=== PATIENT | male | born 1960 | race African-American/Black ===

== ENCOUNTER 2017-02-18 15:02 | Inpatient (IN) | payer OTHER ==
[2017-02-18 16:17] VITALS: BMI 25.4
--- NOTE | 2017-02-18 17:13 | HP ---
CIWA Score - CIWA Score Nausea/Vomitin-Mild Nausea/No Vomiting Muscle Tremors: 4-Moderate,w/Arms Extend Anxiety: 3 Agitation: 3 Paroxysmal Sweats: 1-Minimal Palms Moist Orientation: 0-Oriented Tacttile Disturbances: 1-Very Mild Itch/Numbness Auditory Disturbances: 0-None Visual Disturbances: 0-None Headache: 1-Very Mild CIWA-Ar Total Score: 14 Admission ROS BHS - HPI Chief Complaint: withdrawal sx Allergies/Adverse Reactions: Allergies Allergy/AdvReac Type Severity Reaction Status Date / Time No Known Allergies Allergy Verified 04/16/11 18:33 History of Present Illness: 56 years old male with long history of alcohol nicotine dependence, has hypertension, hiv, bph, hyperlipidemia, and depression is admitted to detox Exam Limitations: No Limitations - Ebola screening Have you traveled outside of the country in the last 21 days: No Have you had contact with anyone from an Ebola affected area: No Have you been sick,other than usual withdrawal symptoms: No Do you have a fever: No - Review of Systems Constitutional: Loss of Appetite, Changes in sleep, Unintentional Wgt. Loss, Unexplained wgt Loss EENT: reports: Blurred Vision (eye glasses) Respiratory: reports: SOB with Exertion Cardiac: reports: No Symptoms Reported GI: reports: Nausea, Poor Fluid Intake, Indigestion, Abdominal cramping : reports: Frequency Musculoskeletal: reports: No Symptoms Reported Integumentary: reports: No Symptoms Reported Neuro: reports: Tremors Endocrine: reports: No Symptoms Reported Hematology: reports: No Symptoms Reported Psychiatric: reports: Judgement Intact, Anxious, Depressed Other Systems: Reviewed and Negative Patient History - Patient Medical History Hx Anemia: No Hx Asthma: Yes (Pt is on MDI) Hx Chronic Obstructive Pulmonary Disease (COPD): No Hx Cancer: No Hx Cardiac Disorders: No Hx Congestive Heart Failure: No Hx Hypertension: No Hx Hypercholesterolemia: No Hx Pacemaker: No HX Cerebrovascular Accident: No Hx Seizures: No Hx Dementia: No Hx Diabetes: No Hx Gastrointestinal Disorders: No Hx Liver Disease: No Hx Genitourinary Disorders: No Hx Sexually Transmitted Disorders: No Hx Renal Disease (ESRD): No Hx Thyroid Disease: No Hx Human Immunodeficiency Virus (HIV): Yes (2006) Hx Hepatitis C: No Hx Depression: Yes Hx Suicide Attempt: No Hx Bipolar Disorder: No Hx Schizophrenia: No - Patient Surgical History Past Surgical History: No Hx Neurologic Surgery: No Hx Cataract Extraction: No Hx Cardiac Surgery: No Hx Lung Surgery: No Hx Breast Surgery: No Hx Breast Biopsy: No Hx Abdominal Surgery: No Hx Appendectomy: No Hx Cholecystectomy: No Hx Genitourinary Surgery: No Hx Orthopedic Surgery: No - PPD History Previous Implant?: Yes Documented Results: Negative w/proof Implanted On Prior [facility] Admission?: Yes Date: 04/18/11 PPD to be Administered?: Yes - Smoking Cessation Smoking history: Current every day smoker Have you smoked in the past 12 months: Yes Aproximately how many cigarettes per day: 8 Cigars Per Day: 0 Hx Chewing Tobacco Use: No Initiated information on smoking cessation: Yes 'Breaking Loose' booklet given: 02/18/17 - Substance & Tx. History Hx Alcohol Use: Yes Hx Substance Use: Yes Substance Use Type: Cocaine Hx Substance Use Treatment: Yes (10/2016 violeta carson) - Substances Abused Alcohol Route: Oral Frequency: Daily Amount used: [id number] Age of first use: 16 Date of Last Use: 02/18/17 Family Disease History - Family Disease History Family Disease History: CA: Mother (), Sister (), Respiratory: Grandparent (), Other: Father (/no contact), Mother, Brother ( no contact), Sister Admission Physical Exam S - Vital Signs Vital Signs: Vital Signs - 24 hr 02/18/17 16:13 Temperature 97.7 F Pulse Rate 97 H Respiratory 19 Rate Blood Pressure 141/75 - Physical General Appearance: Yes: Appropriately Dressed, Mild Distress, Tremorous, Irritable, Sweating, Anxious HEENTM: Yes: Hearing grossly Normal, Normal ENT Inspection, Normocephalic, Normal Voice Respiratory: Yes: Chest Non-Tender, No Respiratory Distress, No Accessory Muscle Use, Rhonchi, Wheezing Neck: Yes: Supple, Trachea in good position Breast: Yes: Breasts Symetrical Cardiology: Yes: Regular Rhythm, S1, S2, Tachycardia Abdominal: Yes: Non Tender, Flat, Increased Bowel Sounds Genitourinary: Yes: Within Normal Limits Back: Yes: Normal Inspection Musculoskeletal: Yes: full range of Motion, Gait Steady, Back pain, Muscle Pain Extremities: Yes: Normal Range of Motion, Non-Tender, Tremors Neurological: Yes: Fully Oriented, Alert, Motor Strength 5/5, Normal Response, Depressed Affect Integumentary: Yes: Dry, Warm Lymphatic: Yes: Within Normal Limits - Diagnostic (1) Alcohol dependence with uncomplicated withdrawal Current Visit: Yes Status: Acute (2) Hypertension Current Visit: Yes Status: Chronic Qualifiers: Hypertension type: essential hypertension Qualified Code(s): I10 - Essential (primary) hypertension (3) Hyperlipidemia Current Visit: Yes Status: Chronic Qualifiers: Hyperlipidemia type: pure hypercholesterolemia Qualified Code(s): E78.00 - Pure hypercholesterolemia, unspecified; E78.0 - Pure hypercholesterolemia (4) Asthma Current Visit: Yes Status: Chronic Qualifiers: Asthma severity: moderate Asthma complication type: with status asthmaticus (5) BPH (benign prostatic hyperplasia) Current Visit: Yes Status: Chronic Qualifiers: Lower urinary tract symptom presence: symptoms present Lower urinary tract symptom detail: post-void dribbling Qualified Code(s): N40.1 - Benign prostatic hyperplasia with lower urinary tract symptoms; N39.43 - Post-void dribbling; N39.43 - Post-void dribbling (6) HIV (human immunodeficiency virus infection) Current Visit: Yes Status: Chronic Comment: patient brought in his own stribild (7) Chronic bronchitis Current Visit: Yes Status: Chronic Qualifiers: Chronic bronchitis type: simple Qualified Code(s): J41.0 - Simple chronic bronchitis (8) Depression (emotion) Current Visit: Yes Status: Suspected Qualifiers: Depression Type: dysthymia Qualified Code(s): F34.1 - Dysthymic disorder Cleared for Admission S - Detox or Rehab [facility] Level of Care: Medically Managed Detox Regimen/Protocol: Librium S Breath Alcohol Content Breath Alcohol Content: 0 Urine Drug Screen - Results Drug Screen Negative: No Urine Drug Screen Results: VANGIE-Cocaine, BZO-Benzodiazepines
[2017-02-18] MEDS ORDERED: LOPERAMIDE HCL 2 MG CAPSULE PO PRN (17:37)
[2017-02-18] MEDS ORDERED: MAGNESIUM HYDROX 2400MG/30ML ORAL SUSPENSION 30 ML CUP PO PRN (17:37)
[2017-02-18] MEDS ORDERED: P-EPHED 60MG/TRIPROLIDI 2.5MG TABLET PO PRN (17:37)
[2017-02-18] MEDS ORDERED: MENTHOL/PHENOL 1 EACH UD MM PRN (17:37)
[2017-02-18] MEDS ORDERED: MAGNESIUM CITRATE 300 ML BOTTLE PO PRN (17:37)
[2017-02-18] MEDS ORDERED: guaiFENesin/D-METHORPHAN HB 10 ML UNIT-DOSE CUPS PO PRN (17:37)
[2017-02-18] MEDS ORDERED: ACETAMINOPHEN 325 MG TABLET (FP) PO PRN (17:37)
[2017-02-18] MEDS ORDERED: NICOTINE POLACRILEX 2 MG GUM BC PRN (17:37)
[2017-02-18] MEDS ORDERED: IBUPROFEN 400 MG TABLET (FP) PO PRN (17:37)
[2017-02-18] MEDS ORDERED: NICOTINE 14 MG/24 HOURS TOPICAL PATCH TD PRN (17:37)
[2017-02-18] MEDS ORDERED: ALBUTEROL SO4 2.5/IPRATROPIUM 0.5 INH SOL 3 ML VIAL.NEB. NEB PRN (17:44)
[2017-02-18] MEDS ORDERED: cloNIDine HCL 0.1 MG TABLET PO PRN (17:47)
[2017-02-18] MEDS ORDERED: SIMETHICONE 80 MG TAB.CHEW (FP) PO PRN (17:50)
[2017-02-18] MEDS ORDERED: ALBUTEROL SO4 0.083% IH SOL 2.5 MG/3 ML VIAL.NEB. NEB PRN (17:59)
[2017-02-18] MEDS: ALBUTEROL SO4 18 GM HFA INHALER IH SCH ×2 (20:15→22:21)
[2017-02-18] MEDS: chlordiazePOXIDE HCL 25 MG CAPSULE PO PRN (20:15)
[2017-02-18] MEDS: MAG HYDROX/AL HYDROX/SIMETH 30 ML UNIT-DOSE CUP PO PRN (20:49)
[2017-02-18] MEDS: THIAMINE HCL 100 MG TABLET (FP) PO SCH (22:20)
[2017-02-18] MEDS: ATORVASTATIN CA 10 MG TABLET (FP) PO SCH (22:21)
[2017-02-18] MEDS: chlordiazePOXIDE HCL 25 MG CAPSULE PO SCH (22:21)
[2017-02-18] MEDS: TAMSULOSIN HCL 0.4 MG CAP.ER.24H (FP) PO SCH (22:21)
[2017-02-18] MEDS: MINERAL OIL/PETROLAT/WATER TOPICAL CREAM 113 GM JAR TP SCH (22:23)
[2017-02-18 23:39] LABS: URINE APPEARANCE SLCLOUDY; URINE BILIRUBIN NEGATIVE (NEGATIVE); URINE BLOOD NEGATIVE (NEGATIVE); URINE COLOR DKYELLOW; URINE GLUCOSE (UA) NEGATIVE (NEGATIVE); URINE KETONE 1+ (NEGATIVE); URINE LEUK ESTERASE TRACE (NEGATIVE); URINE NITRITE NEGATIVE (NEGATIVE); URINE PROTEIN NEGATIVE (NEGATIVE)
[2017-02-19 01:40] LABS: EPI CELLS RARE /HPF (FEW); URINE HYALINE CAST 2 /lpf; URINE MUCUS MANY
[2017-02-19] MEDS: ALBUTEROL SO4 18 GM HFA INHALER IH SCH ×3 (02:32→10:19)
[2017-02-19] MEDS: chlordiazePOXIDE HCL 25 MG CAPSULE PO SCH ×4 (06:02→22:15)
[2017-02-19] MEDS ORDERED: [UNRECOGNIZED DRUG - OTHER] PO SCH (10:00)
[2017-02-19 10:05] LABS: HEMATOCRIT 42.2 % (35.4-49); HEMOGLOBIN 13.9 GM/dL (11.7-16.9); MCH 32.9 pg (25.7-33.7); MCHC 32.8 g/dl (32.0-35.9); MEAN CELL VOLUME 100.3 fl (80-96); MEAN PLT VOLUME 9.3 fl (7.5-11.1); PLATELET COUNT 93 K/MM3 (134-434); RBC 4.21 M/mm3 (4.00-5.60); RDW 16.2 % (11.9-15.9); WHITE BLOOD COUNT 4.6 K/mm3 (4.0-10.0)
[2017-02-19 10:14] LABS: CHLORIDE 102 mmol/L (98-107); POTASSIUM 3.4 mmol/L (3.5-5.1); SODIUM 137 mmol/L (136-145)
[2017-02-19] MEDS: PATIENT'S OWN MEDICATION (NON-FORMULARY) (Tiotropium Bromide [Spiriva] 18 MCG) IH SCH (10:19)
[2017-02-19] MEDS: PRENATAL VITAMINS W/ FOLIC ACID TABLET (FP) PO SCH (10:19)
[2017-02-19] MEDS ORDERED: ALBUTEROL SO4 18 GM HFA INHALER IH PRN (10:26)
[2017-02-19 10:28] LABS: ALBUMIN 3.9 g/dl (3.4-5.0); ALK PHOS 98 U/L (45-117); ANION GAP 11 (8-16); BILIRUBIN,TOTAL 0.7 mg/dL (0.2-1.0); BLOOD UREA NITROGEN 9 mg/dL (7-18); CO2 24 mmol/L (21-32); GLUCOSE,RANDOM 114 mg/dL (74-106); SGOT/AST 67 U/L (15-37); SGPT/ALT 37 U/L (12-78); TOT PROT 7.7 g/dl (6.4-8.2)
[2017-02-19] MEDS ORDERED: BACLOFEN 10 MG TABLET (FP) PO PRN (13:49)
--- NOTE | 2017-02-19 13:54 | PN ---
[facility] CIWA - CIWA Score Nausea/Vomitin-No Nausea/No Vomiting Muscle Tremors: 5 Anxiety: 4-Mod. Anxious/Guarded Agitation: 3 Paroxysmal Sweats: No Perspiration Orientation: 0-Oriented Tacttile Disturbances: 3-Moderate Itch/Numb/Burn Auditory Disturbances: 0-None Visual Disturbances: 2-Mild Sensitivity Headache: 0-None Present CIWA-Ar Total Score: 17 S Progress Note (SOAP) Subjective: Interrupted Sleep, Tremors, Body Aches / Muscle Spasms. Objective: PT. A & O X 3. NO ACUTE DISTRESS. 02/19/17 13:51 Vital Signs Temperature 98.0 F 02/19/17 09:50 Pulse Rate 106 H 02/19/17 09:50 Respiratory Rate 20 02/19/17 09:50 Blood Pressure 128/81 02/19/17 09:50 O2 Sat by Pulse Oximetry (%) Laboratory Tests 02/18/17 02/19/17 02/19/17 20:12 07:00 07:00 WBC 4.6 RBC 4.21 Hgb 13.9 Hct 42.2 MCV 100.3 H MCH 32.9 MCHC 32.8 RDW 16.2 H D Plt Count 93 L D MPV 9.3 Sodium 137 Potassium 3.4 L Chloride 102 Carbon Dioxide 24 Anion Gap 11 BUN 9 D Creatinine 1.0 D Creat Clearance w eGFR > 60 Random Glucose 114 H Calcium 9.0 Total Bilirubin 0.7 AST 67 H ALT 37 D Alkaline Phosphatase 98 D Total Protein 7.7 Albumin 3.9 Urine Color Dkyellow Urine Appearance Slcloudy Urine pH 5.0 Ur Specific [place] 1.021 Urine Protein Negative Urine Glucose (UA) Negative Urine Ketones 1+ H Urine Blood Negative Urine Nitrite Negative Urine Bilirubin Negative Urine Urobilinogen 2.0 Ur Leukocyte Esterase Negative Urine WBC (Auto) 1 Urine RBC (Auto) <1 Ur Epithelial Cells Rare Hyaline Casts 2 Urine Mucus Many RPR Titer 02/19/17 07:00 WBC RBC Hgb Hct MCV MCH MCHC RDW Plt Count MPV Sodium Potassium Chloride Carbon Dioxide Anion Gap BUN Creatinine Creat Clearance w eGFR Random Glucose Calcium Total Bilirubin AST ALT Alkaline Phosphatase Total Protein Albumin Urine Color Urine Appearance Urine pH Ur Specific [place] Urine Protein Urine Glucose (UA) Urine Ketones Urine Blood Urine Nitrite Urine Bilirubin Urine Urobilinogen Ur Leukocyte Esterase Urine WBC (Auto) Urine RBC (Auto) Ur Epithelial Cells Hyaline Casts Urine Mucus RPR Titer Nonreactive LABS NOTED. HCV AB RESULT PENDING. 02/19/17 13:55 Assessment: 02/19/17 13:51 WITHDRAWAL SYMPTOMS. HYPOKALEMIA. THROMBOCYROPENIA. 02/19/17 13:53 Plan: CONTINUE DETOX. K-DUR, 20 MEQ PO X 1 NOW, THEN 20 MEQ PO BID AFTER. INCREASE DAILY PO FLUID INTAKE.
--- NOTE | 2017-02-19 13:59 | EKG ---
Test Reason : Blood Pressure : / mmHG Vent. Rate : 088 BPM Atrial Rate : 088 BPM P-R Int : 154 ms QRS Dur : 076 ms QT Int : 326 ms P-R-T Axes : 074 065 -66 degrees QTc Int : 394 ms NORMAL SINUS RHYTHM POSSIBLE LEFT ATRIAL ENLARGEMENT T WAVE ABNORMALITY, CONSIDER ANTEROLATERAL ISCHEMIA ABNORMAL ECG NO PREVIOUS ECGS AVAILABLE Confirmed by MARCO BERNAL MD ([id number]) on 02/19/2017 1:59:18 PM Referred By: Confirmed By:MARCO BERNAL MD
--- NOTE | 2017-02-19 14:08 | CONSULT ---
[facility] Psychiatric Consult - Data Date of interview: 02/19/17 Admission source: [facility] Identifying data: Readmission to [facility] for this 56 y/o AA male seeking detox treatment on for alcohol and cocaine (crack) dependeence.Patient is single,a father of one,domiciled,unemployed and supported on SSI benefits. Substance Abuse History: Confirmed by patient in this session.See current [facility] report for details : Smoking history: Current every day smoker. Have you smoked in the past 12 months: Yes. Aproximately how many cigarettes per day: 8. Cigars Per Day: 0. Hx Chewing Tobacco Use: No. Initiated information on smoking cessation: Yes. 'Breaking Loose' booklet given: 02/18/17. - Substance & Tx. History. Hx Alcohol Use: Yes. Hx Substance Use: Yes. Substance Use Type : Cocaine. Hx Substance Use Treatment: Yes (10/2016 violeta carson). - Substances Abused. Alcohol. Route: Oral. Frequency: Daily. Amount used: [id number]. Age of first use: 16. Date of Last Use: 02/18/17 Medical History: Bronchial asthma,HIV infection (since 2006),benign prostatic hyperplasia (BPH) and dyslipidemia. Psychiatric History: Patient admits to a history of multiple psychiatric hospitalizations ([facility] [place],[facility]) .Diagnosed with MDD.Prescribed remeron (dose not recalled).Mr Guillen has no connection with psychiatric OPD care providers.He admits to a chronic history of non-adherence to aftercare plans.Patient denies history of suicide attempts. Physical/Sexual Abuse/Trauma History: Patient denies. Additional Comment: Urine Drug Screen Results: VANGIE-Cocaine, BZO- Benzodiazepines.Noted. Mental Status Exam - Mental Status Exam Alert and Oriented to: Time, Place, Person Cognitive Function: Grossly Intact Patient Appearance: Unkempt, Disheveled Mood: Nervous, Withdrawn, Anxious Affect: Mood Congruent, Constricted Patient Behavior: Fatigued, Cooperative Speech Pattern: Clear, Delayed Voice Loudness: Normal Thought Process: Goal Oriented Thought Disorder: Not Present Hallucinations: Denies Suicidal Ideation: Denies Homicidal Ideation: Denies Insight/Judgement: Poor Sleep: Poorly, Difficulty falling asleep Appetite: Fair Muscle strength/Tone: Normal Gait/Station: Normal Psychiatric Findings - Problem List ([place] 1, 2,3) (1) Alcohol dependence with uncomplicated withdrawal Current Visit: Yes Status: Acute (2) Cocaine dependence Current Visit: Yes Status: Acute (3) Nicotine dependence Current Visit: Yes Status: Acute (4) Substance induced mood disorder Current Visit: Yes Status: Acute (5) Insomnia Current Visit: Yes Status: Acute - Initial Treatment Plan Initial Treatment Plan: Psychoeducation.Detoxification.Sleep hygiene discussed in this session.Remeron 15 mg po hs.Ordered.Side effects/benefits are discussed with patient.Renate gave consent (verbal) to typewriter operator automatic.Observation.
[2017-02-19] MEDS: chlordiazePOXIDE HCL 25 MG CAPSULE PO PRN (14:14)
[2017-02-19] MEDS ORDERED: POTASSIUM CHLORIDE TABS 20 MEQ TABLET.ER (FP) PO ONE (14:15)
[2017-02-19] MEDS: MAG HYDROX/AL HYDROX/SIMETH 30 ML UNIT-DOSE CUP PO PRN (18:19)
[2017-02-19] MEDS: POTASSIUM CHLORIDE TABS 20 MEQ TABLET.ER (FP) PO SCH (18:19)
[2017-02-19] MEDS ORDERED: ELVITEG/COB/EMTRI/TENOFO (STRIBILD) TABLET -NF PO SCH (22:00)
[2017-02-19] MEDS: THIAMINE HCL 100 MG TABLET (FP) PO SCH (22:15)
[2017-02-19] MEDS: MINERAL OIL/PETROLAT/WATER TOPICAL CREAM 113 GM JAR TP SCH (22:15)
[2017-02-19] MEDS: TAMSULOSIN HCL 0.4 MG CAP.ER.24H (FP) PO SCH (22:15)
[2017-02-19] MEDS: MIRTAZAPINE 15 MG TABLET (FP) PO SCH (22:15)
[2017-02-19] MEDS: ATORVASTATIN CA 10 MG TABLET (FP) PO SCH (22:16)
[2017-02-19] MEDS ORDERED: diphenhydrAMINE HCL 25 MG CAPSULE (FP) PO ONE (23:42)
[2017-02-20] MEDS ORDERED: hydrOXYzine PAMOATE 25 MG CAPSULE (FP) PO ONE (01:52)
[2017-02-20] MEDS: chlordiazePOXIDE HCL 25 MG CAPSULE PO PRN (04:23)
--- NOTE | 2017-02-20 04:32 | PN ---
[facility] Progress Note Note: Patient was seen and examined at bedside with complaint of shaking and restlessness. Patient states, "Something is crawling all over my body and I can' t sleep, I feel that my right hand is numb." Patient denies chest pain, radiation to the arm, SOB, dizziness, lightheadedness and palpitations. Stat EKG done with no change noted from previous admission EKG. V/S B/P 107/75, HR 78, RR 18, T97.1. Librium 25mg tablet oral given.
[2017-02-20] MEDS: chlordiazePOXIDE HCL 25 MG CAPSULE PO SCH ×3 (06:00→16:51)
[2017-02-20] MEDS: PRENATAL VITAMINS W/ FOLIC ACID TABLET (FP) PO SCH (10:26)
[2017-02-20] MEDS: PATIENT'S OWN MEDICATION (NON-FORMULARY) (Tiotropium Bromide [Spiriva] 18 MCG) IH SCH (10:26)
[2017-02-20] MEDS: POTASSIUM CHLORIDE TABS 20 MEQ TABLET.ER (FP) PO SCH ×2 (10:26→17:07)
--- NOTE | 2017-02-20 16:14 | PN ---
[facility] CIWA - CIWA Score Nausea/Vomitin-No Nausea/No Vomiting Muscle Tremors: 3 Anxiety: 4-Mod. Anxious/Guarded Agitation: 2 Paroxysmal Sweats: 3 Orientation: 0-Oriented Tacttile Disturbances: 3-Moderate Itch/Numb/Burn Auditory Disturbances: 0-None Visual Disturbances: 2-Mild Sensitivity Headache: 0-None Present CIWA-Ar Total Score: 17 BHS Progress Note (SOAP) Subjective: Interrupted Sleep, Tremors, Sweating, Fatigue. Objective: PT. A & O X 3. NO ACUTE DISTRESS. 02/20/17 16:12 Vital Signs Temperature 97.9 F 02/20/17 06:00 Pulse Rate 82 02/20/17 06:00 Respiratory Rate 18 02/20/17 06:00 Blood Pressure 106/67 02/20/17 06:00 O2 Sat by Pulse Oximetry (%) Laboratory Tests 02/18/17 02/18/17 02/19/17 07:00 20:12 07:00 WBC 4.6 RBC 4.21 Hgb 13.9 Hct 42.2 MCV 100.3 H MCH 32.9 MCHC 32.8 RDW 16.2 H D Plt Count 93 L D MPV 9.3 Sodium Potassium Chloride Carbon Dioxide Anion Gap BUN Creatinine Creat Clearance w eGFR Random Glucose Calcium Total Bilirubin AST ALT Alkaline Phosphatase Total Protein Albumin Urine Color Dkyellow Urine Appearance Slcloudy Urine pH 5.0 Ur Specific [place] 1.021 Urine Protein Negative Urine Glucose (UA) Negative Urine Ketones 1+ H Urine Blood Negative Urine Nitrite Negative Urine Bilirubin Negative Urine Urobilinogen 2.0 Ur Leukocyte Esterase Negative Urine WBC (Auto) 1 Urine RBC (Auto) <1 Ur Epithelial Cells Rare Hyaline Casts 2 Urine Mucus Many RPR Titer Hepatitis C Antibody 0.1 02/19/17 02/19/17 07:00 07:00 WBC RBC Hgb Hct MCV MCH MCHC RDW Plt Count MPV Sodium 137 Potassium 3.4 L Chloride 102 Carbon Dioxide 24 Anion Gap 11 BUN 9 D Creatinine 1.0 D Creat Clearance w eGFR > 60 Random Glucose 114 H Calcium 9.0 Total Bilirubin 0.7 AST 67 H ALT 37 D Alkaline Phosphatase 98 D Total Protein 7.7 Albumin 3.9 Urine Color Urine Appearance Urine pH Ur Specific [place] Urine Protein Urine Glucose (UA) Urine Ketones Urine Blood Urine Nitrite Urine Bilirubin Urine Urobilinogen Ur Leukocyte Esterase Urine WBC (Auto) Urine RBC (Auto) Ur Epithelial Cells Hyaline Casts Urine Mucus RPR Titer Nonreactive Hepatitis C Antibody LABS NOTED. Assessment: 02/20/17 16:13 WITHDRAWAL SYMPTOMS. HYPOKALEMIA. 02/20/17 16:14 Plan: CONTINUE DETOX. INCREASE DAILY PO FLUID INTAKE. CONTINUE K-DUR BID.
[2017-02-20] MEDS: chlordiazePOXIDE 5 MG CAPSULE PO SCH (22:11)
[2017-02-20] MEDS: ATORVASTATIN CA 10 MG TABLET (FP) PO SCH (22:11)
[2017-02-20] MEDS: MIRTAZAPINE 15 MG TABLET (FP) PO SCH (22:11)
[2017-02-20] MEDS: ELVITEG/COB/EMTRI/TENOFO (STRIBILD) TABLET -NF PO SCH (22:11)
[2017-02-20] MEDS: THIAMINE HCL 100 MG TABLET (FP) PO SCH (22:11)
[2017-02-20] MEDS: TAMSULOSIN HCL 0.4 MG CAP.ER.24H (FP) PO SCH (22:11)
[2017-02-20] MEDS: MINERAL OIL/PETROLAT/WATER TOPICAL CREAM 113 GM JAR TP SCH (22:53)
[2017-02-21] MEDS: chlordiazePOXIDE 5 MG CAPSULE PO SCH ×3 (04:39→17:01)
[2017-02-21] MEDS: PATIENT'S OWN MEDICATION (NON-FORMULARY) (Tiotropium Bromide [Spiriva] 18 MCG) IH SCH (10:37)
[2017-02-21] MEDS: POTASSIUM CHLORIDE TABS 20 MEQ TABLET.ER (FP) PO SCH ×2 (10:37→17:01)
[2017-02-21] MEDS: PRENATAL VITAMINS W/ FOLIC ACID TABLET (FP) PO SCH (10:37)
--- NOTE | 2017-02-21 15:00 | PN ---
BHS Progress Note (SOAP) Subjective: Tremor, sweating, interrupted sleep, nausea Objective: 02/21/17 14:54 Last Vital Signs Temp Pulse Resp BP Pulse Ox 97.3 F L 102 H 20 130/81 02/21/17 14:25 02/21/17 14:25 02/21/17 14:25 02/21/17 14:25 Laboratory Tests 02/18/17 02/18/17 02/19/17 07:00 20:12 07:00 WBC 4.6 RBC 4.21 Hgb 13.9 Hct 42.2 MCV 100.3 H MCH 32.9 MCHC 32.8 RDW 16.2 H D Plt Count 93 L D MPV 9.3 Sodium Potassium Chloride Carbon Dioxide Anion Gap BUN Creatinine Creat Clearance w eGFR Random Glucose Calcium Total Bilirubin AST ALT Alkaline Phosphatase Total Protein Albumin Urine Color Dkyellow Urine Appearance Slcloudy Urine pH 5.0 Ur Specific [place] 1.021 Urine Protein Negative Urine Glucose (UA) Negative Urine Ketones 1+ H Urine Blood Negative Urine Nitrite Negative Urine Bilirubin Negative Urine Urobilinogen 2.0 Ur Leukocyte Esterase Negative Urine WBC (Auto) 1 Urine RBC (Auto) <1 Ur Epithelial Cells Rare Hyaline Casts 2 Urine Mucus Many RPR Titer Hepatitis C Antibody 0.1 02/19/17 02/19/17 07:00 07:00 WBC RBC Hgb Hct MCV MCH MCHC RDW Plt Count MPV Sodium 137 Potassium 3.4 L Chloride 102 Carbon Dioxide 24 Anion Gap 11 BUN 9 D Creatinine 1.0 D Creat Clearance w eGFR > 60 Random Glucose 114 H Calcium 9.0 Total Bilirubin 0.7 AST 67 H ALT 37 D Alkaline Phosphatase 98 D Total Protein 7.7 Albumin 3.9 Urine Color Urine Appearance Urine pH Ur Specific [place] Urine Protein Urine Glucose (UA) Urine Ketones Urine Blood Urine Nitrite Urine Bilirubin Urine Urobilinogen Ur Leukocyte Esterase Urine WBC (Auto) Urine RBC (Auto) Ur Epithelial Cells Hyaline Casts Urine Mucus RPR Titer Nonreactive Hepatitis C Antibody Labs noted: K 3.4 Assessment: 02/21/17 14:55 Withdrawal symptoms Noted with mild hypokalemia Plan: Continue detox Hypokalemia: continue PO K Dur supplement
[2017-02-21] MEDS: MIRTAZAPINE 15 MG TABLET (FP) PO SCH (22:09)
[2017-02-21] MEDS: ELVITEG/COB/EMTRI/TENOFO (STRIBILD) TABLET -NF PO SCH (22:09)
[2017-02-21] MEDS: MINERAL OIL/PETROLAT/WATER TOPICAL CREAM 113 GM JAR TP SCH (22:09)
[2017-02-21] MEDS: TAMSULOSIN HCL 0.4 MG CAP.ER.24H (FP) PO SCH (22:09)
[2017-02-21] MEDS: chlordiazePOXIDE HCL 10 MG CAPSULE PO SCH (22:09)
[2017-02-21] MEDS: ATORVASTATIN CA 10 MG TABLET (FP) PO SCH (22:09)
[2017-02-21] MEDS: THIAMINE HCL 100 MG TABLET (FP) PO SCH (23:07)
[2017-02-22] MEDS: chlordiazePOXIDE HCL 10 MG CAPSULE PO SCH ×3 (06:03→17:36)
[2017-02-22] MEDS: POTASSIUM CHLORIDE TABS 20 MEQ TABLET.ER (FP) PO SCH ×2 (10:11→17:36)
[2017-02-22] MEDS: PRENATAL VITAMINS W/ FOLIC ACID TABLET (FP) PO SCH (10:11)
[2017-02-22] MEDS: PATIENT'S OWN MEDICATION (NON-FORMULARY) (Tiotropium Bromide [Spiriva] 18 MCG) IH SCH (10:12)
--- NOTE | 2017-02-22 15:00 | PN ---
BHS Progress Note (SOAP) Subjective: Tremor, sweating, interrupted sleep. Patient is scheduled for discharge tomorrow. Objective: 02/22/17 14:58 Last Vital Signs Temp Pulse Resp BP Pulse Ox 97.8 F 101 H 18 138/87 02/22/17 14:00 02/22/17 14:00 02/22/17 14:00 02/22/17 14:00 Laboratory Tests 02/18/17 02/18/17 02/19/17 07:00 20:12 07:00 WBC 4.6 RBC 4.21 Hgb 13.9 Hct 42.2 MCV 100.3 H MCH 32.9 MCHC 32.8 RDW 16.2 H D Plt Count 93 L D MPV 9.3 Sodium Potassium Chloride Carbon Dioxide Anion Gap BUN Creatinine Creat Clearance w eGFR Random Glucose Calcium Total Bilirubin AST ALT Alkaline Phosphatase Total Protein Albumin Urine Color Dkyellow Urine Appearance Slcloudy Urine pH 5.0 Ur Specific [place] 1.021 Urine Protein Negative Urine Glucose (UA) Negative Urine Ketones 1+ H Urine Blood Negative Urine Nitrite Negative Urine Bilirubin Negative Urine Urobilinogen 2.0 Ur Leukocyte Esterase Negative Urine WBC (Auto) 1 Urine RBC (Auto) <1 Ur Epithelial Cells Rare Hyaline Casts 2 Urine Mucus Many RPR Titer Hepatitis C Antibody 0.1 02/19/17 02/19/17 07:00 07:00 WBC RBC Hgb Hct MCV MCH MCHC RDW Plt Count MPV Sodium 137 Potassium 3.4 L Chloride 102 Carbon Dioxide 24 Anion Gap 11 BUN 9 D Creatinine 1.0 D Creat Clearance w eGFR > 60 Random Glucose 114 H Calcium 9.0 Total Bilirubin 0.7 AST 67 H ALT 37 D Alkaline Phosphatase 98 D Total Protein 7.7 Albumin 3.9 Urine Color Urine Appearance Urine pH Ur Specific [place] Urine Protein Urine Glucose (UA) Urine Ketones Urine Blood Urine Nitrite Urine Bilirubin Urine Urobilinogen Ur Leukocyte Esterase Urine WBC (Auto) Urine RBC (Auto) Ur Epithelial Cells Hyaline Casts Urine Mucus RPR Titer Nonreactive Hepatitis C Antibody Labs noted: K 3.4 Assessment: 02/22/17 14:59 Withdrawal symptoms Mild hypokalemia noted Plan: Continue detox Mild hypokalemia: continue potassium supplement
--- NOTE | 2017-02-22 16:45 | PN ---
S Progress Note Note: nurse called to inform us of patient not having stribald, will be discharged early in AM and to go ostraight to phrmacy and to take tonights odse in am and then restart regular schedule.
[2017-02-22] MEDS: MIRTAZAPINE 15 MG TABLET (FP) PO SCH (22:11)
[2017-02-22] MEDS: TAMSULOSIN HCL 0.4 MG CAP.ER.24H (FP) PO SCH (22:11)
[2017-02-22] MEDS: THIAMINE HCL 100 MG TABLET (FP) PO SCH (22:11)
[2017-02-22] MEDS: ATORVASTATIN CA 10 MG TABLET (FP) PO SCH (22:11)
[2017-02-22] MEDS: MINERAL OIL/PETROLAT/WATER TOPICAL CREAM 113 GM JAR TP SCH (22:12)
[2017-02-22] MEDS: ELVITEG/COB/EMTRI/TENOFO (STRIBILD) TABLET -NF PO SCH (22:14)
[2017-02-23] MEDS: PRENATAL VITAMINS W/ FOLIC ACID TABLET (FP) PO SCH (10:19)
[2017-02-23] MEDS: POTASSIUM CHLORIDE TABS 20 MEQ TABLET.ER (FP) PO SCH (10:19)
[2017-02-23] MEDS: PATIENT'S OWN MEDICATION (NON-FORMULARY) (Tiotropium Bromide [Spiriva] 18 MCG) IH SCH (10:20)
--- NOTE | 2017-02-23 11:13 | DS ---
[facility] Detox Discharge Summary Admission Date: 02/18/17 Discharge Date: 02/23/17 - History Present History: Alcohol Dependence, Cocaine Dependence Additional Comments: PATIENT GOING TO [facility] FOR AFTERCARE. PATIENT DISCHARGED FROM DETOX UNIT IN STABLE MEDICAL CONDITION. Pertinent Past History: Asthma, BPH, HIV, HTN, Hyperlipidemia, Depression, Nicotine Dependence, Hypokalemia, Chronic Bronchitis, Insomnia. - Physical Exam Results Vital Signs: Vital Signs Temperature 97.0 F L 02/23/17 09:07 Pulse Rate 100 H 02/23/17 09:07 Respiratory Rate 20 02/23/17 09:07 Blood Pressure 133/77 02/23/17 09:07 O2 Sat by Pulse Oximetry (%) Pertinent Admission Physical Exam Findings: WITHDRAWAL SYMPTOMS. Laboratory Tests 02/18/17 02/18/17 02/19/17 07:00 20:12 07:00 WBC 4.6 RBC 4.21 Hgb 13.9 Hct 42.2 MCV 100.3 H MCH 32.9 MCHC 32.8 RDW 16.2 H D Plt Count 93 L D MPV 9.3 Sodium Potassium Chloride Carbon Dioxide Anion Gap BUN Creatinine Creat Clearance w eGFR Random Glucose Calcium Total Bilirubin AST ALT Alkaline Phosphatase Total Protein Albumin Urine Color Dkyellow Urine Appearance Slcloudy Urine pH 5.0 Ur Specific [place] 1.021 Urine Protein Negative Urine Glucose (UA) Negative Urine Ketones 1+ H Urine Blood Negative Urine Nitrite Negative Urine Bilirubin Negative Urine Urobilinogen 2.0 Ur Leukocyte Esterase Negative Urine WBC (Auto) 1 Urine RBC (Auto) <1 Ur Epithelial Cells Rare Hyaline Casts 2 Urine Mucus Many RPR Titer Hepatitis C Antibody 0.1 02/19/17 02/19/17 07:00 07:00 WBC RBC Hgb Hct MCV MCH MCHC RDW Plt Count MPV Sodium 137 Potassium 3.4 L Chloride 102 Carbon Dioxide 24 Anion Gap 11 BUN 9 D Creatinine 1.0 D Creat Clearance w eGFR > 60 Random Glucose 114 H Calcium 9.0 Total Bilirubin 0.7 AST 67 H ALT 37 D Alkaline Phosphatase 98 D Total Protein 7.7 Albumin 3.9 Urine Color Urine Appearance Urine pH Ur Specific [place] Urine Protein Urine Glucose (UA) Urine Ketones Urine Blood Urine Nitrite Urine Bilirubin Urine Urobilinogen Ur Leukocyte Esterase Urine WBC (Auto) Urine RBC (Auto) Ur Epithelial Cells Hyaline Casts Urine Mucus RPR Titer Nonreactive Hepatitis C Antibody LABS NOTED. - Treatment Hospital Course: Detox Protocol Followed, Detoxed Safely, Responded well, Discharged Condition Good, Rehab Referral Accepted Patient has Accepted a Rehab Referral to: [facility] ([facility] GARC[facility].) . - Medication Discharge Medications: Ambulatory Orders Albuterol Sulfate Inhaler - [Ventolin Hfa Inhaler -] 2 inh PO Q4H 02/18/17 Atorvastatin Ca [Lipitor] 10 mg PO HS 02/18/17 Elviteg/Cob/Emtri/Tenofo Disop [Stribild Tablet] 1 each PO DAILY 02/18/17 Tamsulosin HCl [Flomax -] 0.4 mg PO HS 02/18/17 Tiotropium Lamar [Spiriva] 18 mcg IH DAILY 02/18/17 Mirtazapine [Remeron -] 15 mg PO HS #30 tablet 02/19/17 - Diagnosis (1) Alcohol dependence with uncomplicated withdrawal Current Visit: Yes Status: Acute (2) Asthma Current Visit: Yes Status: Chronic Qualifiers: Asthma severity: mild Asthma persistence: unspecified Asthma complication type: with status asthmaticus Qualified Code(s): J45.902 - Unspecified asthma with status asthmaticus (3) BPH (benign prostatic hyperplasia) Current Visit: Yes Status: Chronic Qualifiers: Lower urinary tract symptom presence: symptoms present Lower urinary tract symptom detail: post-void dribbling Qualified Code(s): N40.1 - Benign prostatic hyperplasia with lower urinary tract symptoms; N39.43 - Post-void dribbling; N39.43 - Post-void dribbling (4) Chronic bronchitis Current Visit: Yes Status: Chronic Qualifiers: Chronic bronchitis type: simple Qualified Code(s): J41.0 - Simple chronic bronchitis (5) HIV (human immunodeficiency virus infection) Current Visit: Yes Status: Chronic (6) Hyperlipidemia Current Visit: Yes Status: Chronic Qualifiers: Hyperlipidemia type: pure hypercholesterolemia Qualified Code(s): E78.00 - Pure hypercholesterolemia, unspecified; E78.0 - Pure hypercholesterolemia (7) Hypertension Current Visit: Yes Status: Chronic Qualifiers: Hypertension type: essential hypertension Qualified Code(s): I10 - Essential (primary) hypertension (8) Depression (emotion) Current Visit: Yes Status: Chronic Qualifiers: Depression Type: dysthymia Qualified Code(s): F34.1 - Dysthymic disorder (9) Cocaine dependence Current Visit: Yes Status: Acute Qualifiers: Substance use status: uncomplicated Qualified Code(s): F14.20 - Cocaine dependence, uncomplicated (10) Hypokalemia Current Visit: Yes Status: Acute (11) Insomnia Current Visit: Yes Status: Acute Qualifiers: Insomnia type: unspecified Qualified Code(s): G47.00 - Insomnia, unspecified (12) Substance induced mood disorder Current Visit: Yes Status: Acute (13) Nicotine dependence Current Visit: Yes Status: Chronic Qualifiers: Nicotine product type: cigarettes Substance use status: uncomplicated Qualified Code(s): F17.210 - Nicotine dependence, cigarettes, uncomplicated - AMA Did Patient Leave Against Medical Advice: No
[2017-02-23 13:03] VITALS: BP 124/74; PULSE 99; TEMP 97.1
--- NOTE | 2017-02-28 14:44 | EKG ---
Test Reason : Blood Pressure : / mmHG Vent. Rate : 085 BPM Atrial Rate : 085 BPM P-R Int : 148 ms QRS Dur : 084 ms QT Int : 356 ms P-R-T Axes : 075 069 -86 degrees QTc Int : 423 ms NORMAL SINUS RHYTHM T WAVE ABNORMALITY, CONSIDER INFERIOR ISCHEMIA T WAVE ABNORMALITY, CONSIDER ANTEROLATERAL ISCHEMIA ABNORMAL ECG WHEN COMPARED WITH ECG OF 18-FEB-2017 21:25, NON-SPECIFIC CHANGE IN ST SEGMENT IN ANTERIOR LEADS T WAVE INVERSION LESS EVIDENT IN LATERAL LEADS CLINICAL CORRELATION IS RECOMMENDED Confirmed by KRISTEN GUSTAFSON, VERÓNICA ([id number]) on 02/28/2017 2:43:40 PM Referred By: Confirmed By:VERÓNICA PETERSON MD
== END 2017-02-23 13:42 | disposition other institution (70) | DRG 775 ==
LOC: YASAS 15:02 → Y3N 19:25
PROVIDERS: ADMIT Internal Medicine; ATTEND Internal Medicine
PROC: HZ2ZZZZ Detoxification Services for Substance Abuse Treatment (ICD-10-PCS; principal; 2017-02-18)
DX: F10.230 Alcohol dependence with withdrawal, uncomplicated (principal); F17.210 Nicotine dependence, cigarettes, uncomplicated; F19.24 Other psychoactive substance dependence with psychoactive substance-induced mood disorder; F34.1 Dysthymic disorder; G47.00 Insomnia, unspecified; I10 Essential (primary) hypertension; N39.43 Post-void dribbling; E78.00 Pure hypercholesterolemia, unspecified; J41.0 Simple chronic bronchitis; J45.902 Unspecified asthma with status asthmaticus; E87.6 Hypokalemia; Z21 Asymptomatic human immunodeficiency virus [HIV] infection status
CPT/HCPCS: 36415; 80053; 81003; 81015; 85027; 86593; 86803; 93005; 93010; J0475

== ENCOUNTER 2017-02-23 13:58 | Inpatient (IN) | payer OTHER ==
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
[2017-02-23 15:43] VITALS: BMI 27.4
[2017-02-23] MEDS ORDERED: MAGNESIUM HYDROX 2400MG/30ML ORAL SUSPENSION 30 ML CUP PO PRN (16:22)
[2017-02-23] MEDS ORDERED: ACETAMINOPHEN 325 MG TABLET (FP) PO PRN (16:22)
[2017-02-23] MEDS ORDERED: NICOTINE POLACRILEX 2 MG GUM BUC PRN (16:22)
[2017-02-23] MEDS ORDERED: MAGNESIUM CITRATE 300 ML BOTTLE PO PRN (16:22)
[2017-02-23] MEDS ORDERED: IBUPROFEN 400 MG TABLET (FP) PO PRN (16:22)
[2017-02-23] MEDS ORDERED: guaiFENesin/D-METHORPHAN HB 10 ML UNIT-DOSE CUPS PO PRN (16:22)
[2017-02-23] MEDS ORDERED: P-EPHED 60MG/TRIPROLIDI 2.5MG TABLET PO PRN (16:22)
[2017-02-23] MEDS ORDERED: LOPERAMIDE HCL 2 MG CAPSULE PO PRN (16:22)
[2017-02-23] MEDS ORDERED: MENTHOL/PHENOL 1 EACH UD MM PRN (16:22)
--- NOTE | 2017-02-23 16:22 | HP ---
BERRY GUSTAFSON Rehab Assess/Revision - Admission History Admitted to Rehab from: [facility] Date of Admission to Rehab: 02/23/17 - Vital signs Vital Signs: Vital Signs Period Temp Pulse Resp BP Sys/Garcia Pulse Ox Last 24 Hr 98.0 F 86 20 123/68 labs reviewed, low K, supplement - Findings Detox History & Physical reviewed: Yes Concur with findings: Yes Inpatient Rehab Admission - Initial Determination Are CD services needed?: Yes Free of communicable disease: Yes Not in need of hospitalization: Yes - Rehab Admission Criteria Comorbidities: Yes Lacks judgement: Yes Patient is meeting Inpatient Rehab admission criteria:: Yes
[2017-02-23] MEDS: ALBUTEROL SO4 18 GM HFA INHALER IH SCH ×2 (16:30→21:20)
[2017-02-23] MEDS ORDERED: POTASSIUM CHLORIDE TABS 20 MEQ TABLET.ER (FP) PO ONE (18:15)
[2017-02-23] MEDS: TAMSULOSIN HCL 0.4 MG CAP.ER.24H (FP) PO SCH (21:19)
[2017-02-23] MEDS: THIAMINE HCL 100 MG TABLET (FP) PO SCH (21:19)
[2017-02-23] MEDS: MIRTAZAPINE 15 MG TABLET (FP) PO SCH (21:19)
[2017-02-23] MEDS: ATORVASTATIN CA 10 MG TABLET (FP) PO SCH (21:19)
[2017-02-24] MEDS: ALBUTEROL SO4 18 GM HFA INHALER IH SCH ×6 (00:12→21:19)
[2017-02-24] MEDS: PRENATAL VITAMINS W/ FOLIC ACID TABLET (FP) PO SCH (10:04)
[2017-02-24] MEDS: ELVITEG/COB/EMTRI/TENOFO (STRIBILD) TABLET -NF PO SCH (10:05)
[2017-02-24] MEDS: TIOTROPIUM BROMIDE 18 MCG/INH (DEVICE W/ 5 CAPSULES) IH SCH (10:06)
[2017-02-24] MEDS: NICOTINE 14 MG/24 HOURS TOPICAL PATCH TD SCH (10:08)
[2017-02-24] MEDS: THIAMINE HCL 100 MG TABLET (FP) PO SCH (21:18)
[2017-02-24] MEDS: ATORVASTATIN CA 10 MG TABLET (FP) PO SCH (21:18)
[2017-02-24] MEDS: MIRTAZAPINE 15 MG TABLET (FP) PO SCH (21:18)
[2017-02-24] MEDS: TAMSULOSIN HCL 0.4 MG CAP.ER.24H (FP) PO SCH (21:18)
[2017-02-25] MEDS: ALBUTEROL SO4 18 GM HFA INHALER IH SCH ×6 (00:01→20:30)
[2017-02-25] MEDS: ELVITEG/COB/EMTRI/TENOFO (STRIBILD) TABLET -NF PO SCH (09:43)
[2017-02-25] MEDS: PRENATAL VITAMINS W/ FOLIC ACID TABLET (FP) PO SCH (09:43)
[2017-02-25] MEDS: TIOTROPIUM BROMIDE 18 MCG/INH (DEVICE W/ 5 CAPSULES) IH SCH (09:45)
[2017-02-25] MEDS: NICOTINE 14 MG/24 HOURS TOPICAL PATCH TD SCH (09:47)
[2017-02-25] MEDS ORDERED: SUVOREXANT 10 MG TABLET PO PRN ×2 (19:11→19:17)
[2017-02-25] MEDS: THIAMINE HCL 100 MG TABLET (FP) PO SCH (21:50)
[2017-02-25] MEDS: ATORVASTATIN CA 10 MG TABLET (FP) PO SCH (21:50)
[2017-02-25] MEDS: TAMSULOSIN HCL 0.4 MG CAP.ER.24H (FP) PO SCH (21:50)
[2017-02-25] MEDS: MIRTAZAPINE 15 MG TABLET (FP) PO SCH (21:50)
[2017-02-25] MEDS: MAG HYDROX/AL HYDROX/SIMETH 30 ML UNIT-DOSE CUP PO PRN (22:46)
[2017-02-26] MEDS: ALBUTEROL SO4 18 GM HFA INHALER IH SCH ×6 (00:10→21:13)
--- NOTE | 2017-02-26 09:31 | PN ---
Psychiatric Progress Note Vital Signs: Vital Signs Period Temp Pulse Resp BP Sys/Garcia Pulse Ox Last 24 Hr 98.5 F 75-96 18-18 126-135/66-71 Date of Session: 02/26/17 Chief Complaint:: Insomnia HPI: Patient addressing Alcohol, Cocaine Dependence comorbid with Nicotine Dependence and Substance-induced Sleep Disorder ROS: Asthma, HTN, HLD, BPH Current Medications: Active Medications Generic Name Dose Route Start Last Admin Trade Name Freq PRN Reason Stop Dose Admin Acetaminophen 650 mg 02/23/17 16:22 Tylenol - PO Q4H PRN FEVER OR PAIN Al Hydroxide/Mg Hydroxide 30 ml 02/23/17 16:22 02/25/17 22:46 Mylanta Oral Suspension - PO 30 ml Q6H PRN Administration DYSPEPSIA Albuterol Sulfate 0 puff 02/23/17 16:30 02/26/17 05:24 Ventolin Hfa Inhaler - IH Not Given Q4H BENNETT Atorvastatin Calcium 10 mg 02/23/17 22:00 02/25/17 21:50 Lipitor - PO 10 mg HS BENNETT Administration Elvitegravir/Cobicis/Emtricit/Tenof 1 tab 02/24/17 10:00 02/25/17 09:43 Stribild (Non-Formulary) PO 1 tab DAILY BENNETT Administration Eucalyptus/Menthol/Phenol/Sorbitol 1 each 02/23/17 16:22 Cepastat Lozenge - MM Q4H PRN SORE THROAT Guaifenesin 10 ml 02/23/17 16:22 Robitussin Dm - PO Q6H PRN COUGH Hydroxyzine Pamoate 50 mg 02/23/17 16:22 Vistaril - PO Q4H PRN AGITATION Ibuprofen 400 mg 02/23/17 16:22 Motrin - PO Q6H PRN PAIN Loperamide HCl 4 mg 02/23/17 16:22 Imodium - PO Q6H PRN DIARRHEA Magnesium Citrate 300 ml 02/23/17 16:22 Citroma - PO Q48H PRN CONSTIPATION Magnesium Hydroxide 30 ml 02/23/17 16:22 Milk Of Magnesia - PO DAILY PRN CONSTIPATION Nicotine 14 mg 02/24/17 10:00 02/25/17 09:47 Nicoderm Patch - TD Not Given DAILY BENNETT Nicotine Polacrilex 2 mg 02/23/17 16:22 Nicorette Gum - BUC Q2H PRN NICOTINE REPLACEMENT RX Multivit/Folic Acid/Iron 1 tab 02/24/17 10:00 02/25/17 09:43 Vitamins (Sjr) - PO 1 tab DAILY BENNETT Administration Pseudoephedrine/Triprolidine 1 combo 02/23/17 16:22 Actifed - PO TID PRN NASAL CONGESTION Quetiapine Fumarate 100 mg 02/26/17 22:00 Seroquel - PO HS BENNETT Tamsulosin HCl 0.4 mg 02/23/17 22:00 02/25/17 21:50 Flomax - PO 0.4 mg HS BENNETT Administration Thiamine HCl 100 mg 02/23/17 22:00 02/25/17 21:50 Vitamin B1 - PO 100 mg HS BENNETT Administration Tiotropium [place] 1 puff 02/26/17 10:00 Spiriva - IH DAILY BENNETT Medication(s) Change(s): 1) Discontinue Remeron. 2) Start Seroquel 100 mg po HS Current Side Effect: No Lab tests ordered: Yes Lab tests reviewed: Yes Provider note:: Patient reports experiencing difficulty to sleep. Told engineering writer that he has been sleeping poorly despite taking Remeron. Requests to take Seroquel to which he has responded favorably in the past. He was prescribed Belsomra but agency pharmacy detect a drug-drug interaction with his HIV medication Total face to face time:: 15 Mental Status Exam - Mental Status Exam Alert and Oriented to: Time, Place, Person Cognitive Function: Fair Patient Appearance: Well Groomed Mood: Hopeful, Euthymic Affect: Appropriate Patient Behavior: Cooperative Speech Pattern: Clear Voice Loudness: Normal Thought Process: Intact, Goal Oriented Thought Disorder: Not Present Hallucinations: Denies Suicidal Ideation: Denies Homicidal Ideation: Denies Insight/Judgement: Fair Sleep: Poorly Appetite: Good Muscle strength/Tone: Normal Gait/Station: Normal Psychiatric Treatment Plan - Problem List (1) Substance-induced sleep disorder Current Visit: Yes (2) Alcohol dependence Current Visit: Yes (3) Cocaine dependence Current Visit: No Qualifiers: Substance use status: uncomplicated Qualified Code(s): F14.20 - Cocaine dependence, uncomplicated (4) Nicotine dependence Current Visit: No Qualifiers: Nicotine product type: cigarettes Substance use status: uncomplicated Qualified Code(s): F17.210 - Nicotine dependence, cigarettes, uncomplicated (5) Asthma Current Visit: No Qualifiers: Asthma severity: mild Asthma persistence: unspecified Asthma complication type: with status asthmaticus Qualified Code(s): J45.902 - Unspecified asthma with status asthmaticus (6) BPH (benign prostatic hyperplasia) Current Visit: No Qualifiers: Lower urinary tract symptom presence: symptoms present Lower urinary tract symptom detail: post-void dribbling Qualified Code(s): N40.1 - Benign prostatic hyperplasia with lower urinary tract symptoms; N39.43 - Post-void dribbling; N39.43 - Post-void dribbling (7) HIV (human immunodeficiency virus infection) Current Visit: No Comment: patient brought in his own stribild (8) Hyperlipidemia Current Visit: No Qualifiers: Hyperlipidemia type: pure hypercholesterolemia Qualified Code(s): E78.00 - Pure hypercholesterolemia, unspecified; E78.0 - Pure hypercholesterolemia (9) Hypertension Current Visit: No Qualifiers: Hypertension type: essential hypertension Qualified Code(s): I10 - Essential (primary) hypertension Initial treatment plan: 1) Discontinue Remeron. 2) Start Seroquel 100 mg po HS. 3) Monitor progress
[2017-02-26] MEDS: ELVITEG/COB/EMTRI/TENOFO (STRIBILD) TABLET -NF PO SCH (09:34)
[2017-02-26] MEDS: PRENATAL VITAMINS W/ FOLIC ACID TABLET (FP) PO SCH (09:34)
[2017-02-26] MEDS: TIOTROPIUM BROMIDE 18 MCG/INH (DEVICE W/ 5 CAPSULES) IH SCH (09:35)
[2017-02-26] MEDS: NICOTINE 14 MG/24 HOURS TOPICAL PATCH TD SCH (09:36)
[2017-02-26] MEDS: QUEtiapine FUMARATE 100 MG TABLET (FP) PO SCH (21:12)
[2017-02-26] MEDS: ATORVASTATIN CA 10 MG TABLET (FP) PO SCH (21:12)
[2017-02-26] MEDS: TAMSULOSIN HCL 0.4 MG CAP.ER.24H (FP) PO SCH (21:12)
[2017-02-26] MEDS: THIAMINE HCL 100 MG TABLET (FP) PO SCH (21:12)
[2017-02-27] MEDS: ALBUTEROL SO4 18 GM HFA INHALER IH SCH ×6 (00:35→21:30)
[2017-02-27] MEDS: MAG HYDROX/AL HYDROX/SIMETH 30 ML UNIT-DOSE CUP PO PRN ×2 (00:36→17:46)
[2017-02-27] MEDS: NICOTINE 14 MG/24 HOURS TOPICAL PATCH TD SCH (09:28)
[2017-02-27] MEDS: TIOTROPIUM BROMIDE 18 MCG/INH (DEVICE W/ 5 CAPSULES) IH SCH (09:28)
[2017-02-27] MEDS: PRENATAL VITAMINS W/ FOLIC ACID TABLET (FP) PO SCH (09:28)
[2017-02-27] MEDS: QUEtiapine FUMARATE 100 MG TABLET (FP) PO SCH (21:42)
[2017-02-27] MEDS: ATORVASTATIN CA 10 MG TABLET (FP) PO SCH (21:42)
[2017-02-27] MEDS: THIAMINE HCL 100 MG TABLET (FP) PO SCH (21:42)
[2017-02-27] MEDS: TAMSULOSIN HCL 0.4 MG CAP.ER.24H (FP) PO SCH (21:42)
[2017-02-27] MEDS: ELVITEG/COB/EMTRI/TENOFO (STRIBILD) TABLET -NF PO SCH (21:45)
[2017-02-27] MEDS: hydrOXYzine PAMOATE 50 MG CAPSULE (FP) PO PRN (23:35)
[2017-02-28] MEDS: ALBUTEROL SO4 18 GM HFA INHALER IH SCH ×6 (00:05→21:20)
[2017-02-28] MEDS: PRENATAL VITAMINS W/ FOLIC ACID TABLET (FP) PO SCH (09:38)
[2017-02-28] MEDS: NICOTINE 14 MG/24 HOURS TOPICAL PATCH TD SCH (09:38)
[2017-02-28] MEDS: TIOTROPIUM BROMIDE 18 MCG/INH (DEVICE W/ 5 CAPSULES) IH SCH (09:38)
[2017-02-28] MEDS: ELVITEG/COB/EMTRI/TENOFO (STRIBILD) TABLET -NF PO SCH (21:20)
[2017-02-28] MEDS: ATORVASTATIN CA 10 MG TABLET (FP) PO SCH (21:21)
[2017-02-28] MEDS: QUEtiapine FUMARATE 100 MG TABLET (FP) PO SCH (21:21)
[2017-02-28] MEDS: TAMSULOSIN HCL 0.4 MG CAP.ER.24H (FP) PO SCH (21:21)
[2017-02-28] MEDS: THIAMINE HCL 100 MG TABLET (FP) PO SCH (21:21)
[2017-02-28] MEDS: hydrOXYzine PAMOATE 50 MG CAPSULE (FP) PO PRN (21:22)
[2017-03-01] MEDS: ALBUTEROL SO4 18 GM HFA INHALER IH SCH ×6 (00:13→21:16)
[2017-03-01] MEDS: PRENATAL VITAMINS W/ FOLIC ACID TABLET (FP) PO SCH (09:52)
[2017-03-01] MEDS: NICOTINE 14 MG/24 HOURS TOPICAL PATCH TD SCH ×2 (09:52→09:53)
[2017-03-01] MEDS: TIOTROPIUM BROMIDE 18 MCG/INH (DEVICE W/ 5 CAPSULES) IH SCH (10:34)
[2017-03-01] MEDS: QUEtiapine FUMARATE 100 MG TABLET (FP) PO SCH (21:17)
[2017-03-01] MEDS: ATORVASTATIN CA 10 MG TABLET (FP) PO SCH (21:17)
[2017-03-01] MEDS: THIAMINE HCL 100 MG TABLET (FP) PO SCH (21:17)
[2017-03-01] MEDS: TAMSULOSIN HCL 0.4 MG CAP.ER.24H (FP) PO SCH (21:17)
[2017-03-01] MEDS: ELVITEG/COB/EMTRI/TENOFO (STRIBILD) TABLET -NF PO SCH (21:18)
[2017-03-01] MEDS: MAG HYDROX/AL HYDROX/SIMETH 30 ML UNIT-DOSE CUP PO PRN (22:50)
[2017-03-02] MEDS: ALBUTEROL SO4 18 GM HFA INHALER IH SCH ×5 (00:30→17:05)
[2017-03-02] MEDS: TIOTROPIUM BROMIDE 18 MCG/INH (DEVICE W/ 5 CAPSULES) IH SCH (09:46)
[2017-03-02] MEDS: PRENATAL VITAMINS W/ FOLIC ACID TABLET (FP) PO SCH (09:46)
[2017-03-02] MEDS: NICOTINE 14 MG/24 HOURS TOPICAL PATCH TD SCH (09:46)
[2017-03-02] MEDS ORDERED: ALBUTEROL SO4 18 GM HFA INHALER IH PRN (17:37)
--- NOTE | 2017-03-02 17:39 | PN ---
[facility] Progress Note Note: RECEIVED NURSE CALL THAT VENTOLIN SCHEDULED EVERY 4 HOURS NEEDED TO BE CHANGED TO PRN
[2017-03-02] MEDS: TAMSULOSIN HCL 0.4 MG CAP.ER.24H (FP) PO SCH (21:12)
[2017-03-02] MEDS: ATORVASTATIN CA 10 MG TABLET (FP) PO SCH (21:12)
[2017-03-02] MEDS: THIAMINE HCL 100 MG TABLET (FP) PO SCH (21:12)
[2017-03-02] MEDS: QUEtiapine FUMARATE 100 MG TABLET (FP) PO SCH (21:12)
[2017-03-02] MEDS: ELVITEG/COB/EMTRI/TENOFO (STRIBILD) TABLET -NF PO SCH (22:01)
[2017-03-03] MEDS: NICOTINE 14 MG/24 HOURS TOPICAL PATCH TD SCH (10:25)
[2017-03-03] MEDS: PRENATAL VITAMINS W/ FOLIC ACID TABLET (FP) PO SCH (10:25)
[2017-03-03] MEDS: TIOTROPIUM BROMIDE 18 MCG/INH (DEVICE W/ 5 CAPSULES) IH SCH (10:25)
[2017-03-03] MEDS: SODIUM CHLORIDE NASAL SPRAY 44 ML BOTTLE NS SCH ×2 (11:36→21:28)
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
[2017-03-03] MEDS: THIAMINE HCL 100 MG TABLET (FP) PO SCH (21:27)
[2017-03-03] MEDS: ATORVASTATIN CA 10 MG TABLET (FP) PO SCH (21:27)
[2017-03-03] MEDS: QUEtiapine FUMARATE 100 MG TABLET (FP) PO SCH (21:27)
[2017-03-03] MEDS: TAMSULOSIN HCL 0.4 MG CAP.ER.24H (FP) PO SCH (21:27)
[2017-03-03] MEDS: ELVITEG/COB/EMTRI/TENOFO (STRIBILD) TABLET -NF PO SCH (21:28)
[2017-03-04] MEDS: NICOTINE 14 MG/24 HOURS TOPICAL PATCH TD SCH (09:59)
[2017-03-04] MEDS: SODIUM CHLORIDE NASAL SPRAY 44 ML BOTTLE NS SCH ×2 (09:59→21:15)
[2017-03-04] MEDS: TIOTROPIUM BROMIDE 18 MCG/INH (DEVICE W/ 5 CAPSULES) IH SCH (09:59)
[2017-03-04] MEDS: PRENATAL VITAMINS W/ FOLIC ACID TABLET (FP) PO SCH (09:59)
[2017-03-04] MEDS ORDERED: PT OWN MED DRAWER 7, Y5N ONE (19:11)
[2017-03-04] MEDS: TAMSULOSIN HCL 0.4 MG CAP.ER.24H (FP) PO SCH (21:14)
[2017-03-04] MEDS: ATORVASTATIN CA 10 MG TABLET (FP) PO SCH (21:14)
[2017-03-04] MEDS: QUEtiapine FUMARATE 100 MG TABLET (FP) PO SCH (21:15)
[2017-03-04] MEDS: THIAMINE HCL 100 MG TABLET (FP) PO SCH (21:15)
[2017-03-04] MEDS: ELVITEG/COB/EMTRI/TENOFO (STRIBILD) TABLET -NF PO SCH (21:16)
[2017-03-05] MEDS: SODIUM CHLORIDE NASAL SPRAY 44 ML BOTTLE NS SCH ×2 (09:24→21:16)
[2017-03-05] MEDS: PRENATAL VITAMINS W/ FOLIC ACID TABLET (FP) PO SCH (09:24)
[2017-03-05] MEDS: NICOTINE 14 MG/24 HOURS TOPICAL PATCH TD SCH (09:24)
[2017-03-05] MEDS: TIOTROPIUM BROMIDE 18 MCG/INH (DEVICE W/ 5 CAPSULES) IH SCH (09:25)
[2017-03-05] MEDS: ELVITEG/COB/EMTRI/TENOFO (STRIBILD) TABLET -NF PO SCH (21:17)
[2017-03-05] MEDS: QUEtiapine FUMARATE 100 MG TABLET (FP) PO SCH (21:17)
[2017-03-05] MEDS: ATORVASTATIN CA 10 MG TABLET (FP) PO SCH (21:17)
[2017-03-05] MEDS: THIAMINE HCL 100 MG TABLET (FP) PO SCH (21:17)
[2017-03-05] MEDS: hydrOXYzine PAMOATE 50 MG CAPSULE (FP) PO PRN (21:17)
[2017-03-05] MEDS: TAMSULOSIN HCL 0.4 MG CAP.ER.24H (FP) PO SCH (21:17)
[2017-03-06] MEDS: PRENATAL VITAMINS W/ FOLIC ACID TABLET (FP) PO SCH (10:31)
[2017-03-06] MEDS: SODIUM CHLORIDE NASAL SPRAY 44 ML BOTTLE NS SCH ×2 (10:31→21:49)
[2017-03-06] MEDS: NICOTINE 14 MG/24 HOURS TOPICAL PATCH TD SCH (10:32)
[2017-03-06] MEDS: TIOTROPIUM BROMIDE 18 MCG/INH (DEVICE W/ 5 CAPSULES) IH SCH (10:32)
[2017-03-06] MEDS: THIAMINE HCL 100 MG TABLET (FP) PO SCH (21:49)
[2017-03-06] MEDS: TAMSULOSIN HCL 0.4 MG CAP.ER.24H (FP) PO SCH (21:49)
[2017-03-06] MEDS: ATORVASTATIN CA 10 MG TABLET (FP) PO SCH (21:49)
[2017-03-06] MEDS: QUEtiapine FUMARATE 100 MG TABLET (FP) PO SCH (21:49)
[2017-03-06] MEDS: ELVITEG/COB/EMTRI/TENOFO (STRIBILD) TABLET -NF PO SCH (21:50)
[2017-03-07] MEDS: SODIUM CHLORIDE NASAL SPRAY 44 ML BOTTLE NS SCH ×2 (10:25→21:28)
[2017-03-07] MEDS: PRENATAL VITAMINS W/ FOLIC ACID TABLET (FP) PO SCH (10:25)
[2017-03-07] MEDS: TIOTROPIUM BROMIDE 18 MCG/INH (DEVICE W/ 5 CAPSULES) IH SCH (10:26)
[2017-03-07] MEDS: NICOTINE 14 MG/24 HOURS TOPICAL PATCH TD SCH (10:26)
[2017-03-07] MEDS: QUEtiapine FUMARATE 100 MG TABLET (FP) PO SCH (21:29)
[2017-03-07] MEDS: hydrOXYzine PAMOATE 50 MG CAPSULE (FP) PO PRN (21:29)
[2017-03-07] MEDS: THIAMINE HCL 100 MG TABLET (FP) PO SCH (21:29)
[2017-03-07] MEDS: ELVITEG/COB/EMTRI/TENOFO (STRIBILD) TABLET -NF PO SCH (21:29)
[2017-03-07] MEDS: TAMSULOSIN HCL 0.4 MG CAP.ER.24H (FP) PO SCH (21:29)
[2017-03-07] MEDS: ATORVASTATIN CA 10 MG TABLET (FP) PO SCH (21:29)
[2017-03-07] MEDS: HYDROCORTISONE 1% TOPICAL CREAM 30 GM TUBE TP SCH (21:29)
[2017-03-08] MEDS: SODIUM CHLORIDE NASAL SPRAY 44 ML BOTTLE NS SCH ×2 (09:50→21:30)
[2017-03-08] MEDS: PRENATAL VITAMINS W/ FOLIC ACID TABLET (FP) PO SCH (09:50)
[2017-03-08] MEDS: NICOTINE 14 MG/24 HOURS TOPICAL PATCH TD SCH (09:50)
[2017-03-08] MEDS: HYDROCORTISONE 1% TOPICAL CREAM 30 GM TUBE TP SCH ×2 (09:51→21:30)
[2017-03-08] MEDS: TIOTROPIUM BROMIDE 18 MCG/INH (DEVICE W/ 5 CAPSULES) IH SCH (09:51)
[2017-03-08] MEDS: TAMSULOSIN HCL 0.4 MG CAP.ER.24H (FP) PO SCH (21:29)
[2017-03-08] MEDS: THIAMINE HCL 100 MG TABLET (FP) PO SCH (21:29)
[2017-03-08] MEDS: hydrOXYzine PAMOATE 50 MG CAPSULE (FP) PO PRN (21:29)
[2017-03-08] MEDS: QUEtiapine FUMARATE 100 MG TABLET (FP) PO SCH (21:29)
[2017-03-08] MEDS: ATORVASTATIN CA 10 MG TABLET (FP) PO SCH (21:29)
[2017-03-08] MEDS: ELVITEG/COB/EMTRI/TENOFO (STRIBILD) TABLET -NF PO SCH (21:30)
[2017-03-09] MEDS: PRENATAL VITAMINS W/ FOLIC ACID TABLET (FP) PO SCH (10:28)
[2017-03-09] MEDS: NICOTINE 14 MG/24 HOURS TOPICAL PATCH TD SCH (10:29)
[2017-03-09] MEDS: HYDROCORTISONE 1% TOPICAL CREAM 30 GM TUBE TP SCH ×2 (10:29→21:55)
[2017-03-09] MEDS: TIOTROPIUM BROMIDE 18 MCG/INH (DEVICE W/ 5 CAPSULES) IH SCH (10:29)
[2017-03-09] MEDS: SODIUM CHLORIDE NASAL SPRAY 44 ML BOTTLE NS SCH ×2 (10:29→21:55)
[2017-03-09] MEDS: ATORVASTATIN CA 10 MG TABLET (FP) PO SCH (21:54)
[2017-03-09] MEDS: QUEtiapine FUMARATE 100 MG TABLET (FP) PO SCH (21:54)
[2017-03-09] MEDS: TAMSULOSIN HCL 0.4 MG CAP.ER.24H (FP) PO SCH (21:54)
[2017-03-09] MEDS: THIAMINE HCL 100 MG TABLET (FP) PO SCH (21:54)
[2017-03-09] MEDS: ELVITEG/COB/EMTRI/TENOFO (STRIBILD) TABLET -NF PO SCH (21:56)
[2017-03-10] MEDS: PRENATAL VITAMINS W/ FOLIC ACID TABLET (FP) PO SCH (10:03)
[2017-03-10] MEDS: NICOTINE 14 MG/24 HOURS TOPICAL PATCH TD SCH (10:03)
[2017-03-10] MEDS: HYDROCORTISONE 1% TOPICAL CREAM 30 GM TUBE TP SCH ×2 (10:03→21:37)
[2017-03-10] MEDS: TIOTROPIUM BROMIDE 18 MCG/INH (DEVICE W/ 5 CAPSULES) IH SCH (10:04)
[2017-03-10] MEDS: SODIUM CHLORIDE NASAL SPRAY 44 ML BOTTLE NS SCH ×2 (10:04→21:37)
[2017-03-10] MEDS ORDERED: PT OWN MED DRAWER 7, Y5N ONE (19:48)
[2017-03-10] MEDS: ATORVASTATIN CA 10 MG TABLET (FP) PO SCH (21:36)
[2017-03-10] MEDS: THIAMINE HCL 100 MG TABLET (FP) PO SCH (21:36)
[2017-03-10] MEDS: QUEtiapine FUMARATE 100 MG TABLET (FP) PO SCH (21:36)
[2017-03-10] MEDS: TAMSULOSIN HCL 0.4 MG CAP.ER.24H (FP) PO SCH (21:37)
[2017-03-10] MEDS: ELVITEG/COB/EMTRI/TENOFO (STRIBILD) TABLET -NF PO SCH (21:37)
[2017-03-10] MEDS: hydrOXYzine PAMOATE 50 MG CAPSULE (FP) PO PRN (21:37)
[2017-03-11] MEDS: NICOTINE 14 MG/24 HOURS TOPICAL PATCH TD SCH (10:00)
[2017-03-11] MEDS: PRENATAL VITAMINS W/ FOLIC ACID TABLET (FP) PO SCH (10:00)
[2017-03-11] MEDS: SODIUM CHLORIDE NASAL SPRAY 44 ML BOTTLE NS SCH (10:00)
[2017-03-11] MEDS: TIOTROPIUM BROMIDE 18 MCG/INH (DEVICE W/ 5 CAPSULES) IH SCH (10:01)
[2017-03-11] MEDS: HYDROCORTISONE 1% TOPICAL CREAM 30 GM TUBE TP SCH ×2 (10:01→21:49)
--- NOTE | 2017-03-11 12:53 | PN ---
Psychiatric Progress Note Vital Signs: Vital Signs Period Temp Pulse Resp BP Sys/Garcia Pulse Ox Last 24 Hr 98.4 F 80 18-18 110/65 Date of Session: 03/11/17 Chief Complaint:: Medication Management HPI: Patient addressing Alcohol, Cocaine Dependence comorbid with Nicotine Dependence and Substance-induced Sleep Disorder ROS: Asthma, HTN, HLD, BPH Current Medications: Active Medications Generic Name Dose Route Start Last Admin Trade Name Freq PRN Reason Stop Dose Admin Acetaminophen 650 mg 02/23/17 16:22 Tylenol - PO Q4H PRN FEVER OR PAIN Al Hydroxide/Mg Hydroxide 30 ml 02/23/17 16:22 03/01/17 22:50 Mylanta Oral Suspension - PO 30 ml Q6H PRN Administration DYSPEPSIA Albuterol Sulfate 2 puff 03/02/17 17:37 Ventolin Hfa Inhaler - IH Q4H PRN ASTHMA Atorvastatin Calcium 10 mg 02/23/17 22:00 03/10/17 21:36 Lipitor - PO 10 mg HS [facility] Administration Elvitegravir/Cobicis/Emtricit/Tenof 1 tab 02/27/17 22:00 03/10/17 21:37 Stribild (Non-Formulary) PO 1 tab DAILY@2200 [facility] Administration Eucalyptus/Menthol/Phenol/Sorbitol 1 each 02/23/17 16:22 Cepastat Lozenge - MM Q4H PRN SORE THROAT Guaifenesin 10 ml 02/23/17 16:22 Robitussin Dm - PO Q6H PRN COUGH Hydrocortisone 1 applic 03/07/17 22:00 03/11/17 10:01 Hytone 1% Cream - TP Not Given BID BENNETT Hydroxyzine Pamoate 50 mg 02/23/17 16:22 03/10/17 21:37 Vistaril - PO 50 mg Q4H PRN Administration AGITATION Ibuprofen 400 mg 02/23/17 16:22 03/02/17 17:04 Motrin - PO 400 mg Q6H PRN Administration PAIN Loperamide HCl 4 mg 02/23/17 16:22 Imodium - PO Q6H PRN DIARRHEA Magnesium Citrate 300 ml 02/23/17 16:22 Citroma - PO Q48H PRN CONSTIPATION Magnesium Hydroxide 30 ml 02/23/17 16:22 Milk Of Magnesia - PO DAILY PRN CONSTIPATION Nicotine 14 mg 02/24/17 10:00 03/11/17 10:00 Nicoderm Patch - TD Not Given DAILY BENNETT Nicotine Polacrilex 2 mg 02/23/17 16:22 Nicorette Gum - BUC Q2H PRN NICOTINE REPLACEMENT RX Multivit/Folic Acid/Iron 1 tab 02/24/17 10:00 03/11/17 10:00 Vitamins (Sjr) - PO 1 tab DAILY BENNETT Administration Pseudoephedrine/Triprolidine 1 combo 02/23/17 16:22 Actifed - PO TID PRN NASAL CONGESTION Quetiapine Fumarate 100 mg 02/26/17 22:00 03/10/17 21:36 Seroquel - PO 100 mg HS BENNETT Administration Sodium Chloride 2 spray 03/03/17 11:30 03/11/17 10:00 [place]ron [place] Nasal [place] - NS 2 sprays BID BENNETT Administration Tamsulosin HCl 0.4 mg 02/23/17 22:00 03/10/17 21:37 Flomax - PO 0.4 mg HS BENNETT Administration Thiamine HCl 100 mg 02/23/17 22:00 03/10/17 21:36 Vitamin B1 - PO 100 mg HS BENNETT Administration Tiotropium [place] 1 puff 02/26/17 10:00 03/11/17 10:01 Spiriva - IH Not Given DAILY BENNETT Current Side Effect: No Lab tests ordered: Yes Lab tests reviewed: Yes Provider note:: Met with patient to discuss medication management to help him with craving. Acamprosate, Naltrexone tab and Vivitrol were all discussed with him. Claims that he has been on all three in the past. He said that while at [facility], he was tested with Naltrexone tab before he was started on Vivitrol. He told copywriter after leaving that program, he had a hard time getting that Vivitrol injection. He said that he does not want to revisit that experience. He was willing to take Naltrexone tab over Acamprosate because it is very cumbersome taking 3 pills of the latter trhree times a day. However , due to some abnormality in LFT'S(AST: 67), copywriter does not feel comfortable starting him on Naltrexone. He will be started on Acamprosate(Campral) 666 mg po TID. Benefits vs Risks dicussed with patient and he agreed to try med again as he tolerated it well in the past Total face to face time:: 25 Mental Status Exam - Mental Status Exam Alert and Oriented to: Time, Place, Person Cognitive Function: Fair Patient Appearance: Well Groomed Mood: Hopeful, Euthymic Affect: Appropriate Patient Behavior: Cooperative Speech Pattern: Clear Voice Loudness: Normal Thought Process: Intact, Goal Oriented Thought Disorder: Not Present Hallucinations: Denies Suicidal Ideation: Denies Homicidal Ideation: Denies Insight/Judgement: Fair Sleep: Fair Appetite: Good Muscle strength/Tone: Normal Gait/Station: Normal Psychiatric Treatment Plan - Problem List (1) Substance-induced sleep disorder Current Visit: Yes (2) Alcohol dependence Current Visit: Yes (3) Cocaine dependence Current Visit: No Qualifiers: Substance use status: uncomplicated Qualified Code(s): F14.20 - Cocaine dependence, uncomplicated (4) Nicotine dependence Current Visit: No Qualifiers: Nicotine product type: cigarettes Substance use status: uncomplicated Qualified Code(s): F17.210 - Nicotine dependence, cigarettes, uncomplicated (5) Asthma Current Visit: No Qualifiers: Asthma severity: mild Asthma persistence: unspecified Asthma complication type: with status asthmaticus Qualified Code(s): J45.902 - Unspecified asthma with status asthmaticus (6) BPH (benign prostatic hyperplasia) Current Visit: No Qualifiers: Lower urinary tract symptom presence: symptoms present Lower urinary tract symptom detail: post-void dribbling Qualified Code(s): N40.1 - Benign prostatic hyperplasia with lower urinary tract symptoms; N39.43 - Post-void dribbling; N39.43 - Post-void dribbling (7) HIV (human immunodeficiency virus infection) Current Visit: No Comment: patient brought in his own stribild (8) Hyperlipidemia Current Visit: No Qualifiers: Hyperlipidemia type: pure hypercholesterolemia Qualified Code(s): E78.00 - Pure hypercholesterolemia, unspecified; E78.0 - Pure hypercholesterolemia (9) Hypertension Current Visit: No Qualifiers: Hypertension type: essential hypertension Qualified Code(s): I10 - Essential (primary) hypertension Initial treatment plan: 1) Start Acamprosate 666 mg po TID. 2) Monitor progress
[2017-03-11] MEDS: ACAMPROSATE CALCIUM 333 MG TABLET.DR PO SCH ×2 (15:36→21:47)
[2017-03-11] MEDS ORDERED: PT OWN MED DRAWER 7, Y5N ONE (19:38)
[2017-03-11] MEDS: TAMSULOSIN HCL 0.4 MG CAP.ER.24H (FP) PO SCH (21:45)
[2017-03-11] MEDS: ELVITEG/COB/EMTRI/TENOFO (STRIBILD) TABLET -NF PO SCH (21:46)
[2017-03-11] MEDS: THIAMINE HCL 100 MG TABLET (FP) PO SCH (21:47)
[2017-03-11] MEDS: QUEtiapine FUMARATE 100 MG TABLET (FP) PO SCH (21:47)
[2017-03-11] MEDS: ATORVASTATIN CA 10 MG TABLET (FP) PO SCH (21:49)
[2017-03-12] MEDS: SODIUM CHLORIDE NASAL SPRAY 44 ML BOTTLE NS SCH ×4 (00:11→21:44)
[2017-03-12] MEDS: ACAMPROSATE CALCIUM 333 MG TABLET.DR PO SCH ×3 (06:39→21:44)
[2017-03-12] MEDS: NICOTINE 14 MG/24 HOURS TOPICAL PATCH TD SCH (09:46)
[2017-03-12] MEDS: PRENATAL VITAMINS W/ FOLIC ACID TABLET (FP) PO SCH (09:46)
[2017-03-12] MEDS: HYDROCORTISONE 1% TOPICAL CREAM 30 GM TUBE TP SCH ×2 (09:47→21:46)
[2017-03-12] MEDS: TIOTROPIUM BROMIDE 18 MCG/INH (DEVICE W/ 5 CAPSULES) IH SCH (10:21)
[2017-03-12] MEDS: ATORVASTATIN CA 10 MG TABLET (FP) PO SCH (21:44)
[2017-03-12] MEDS: THIAMINE HCL 100 MG TABLET (FP) PO SCH (21:44)
[2017-03-12] MEDS: TAMSULOSIN HCL 0.4 MG CAP.ER.24H (FP) PO SCH (21:44)
[2017-03-12] MEDS: QUEtiapine FUMARATE 100 MG TABLET (FP) PO SCH (21:45)
[2017-03-12] MEDS: ELVITEG/COB/EMTRI/TENOFO (STRIBILD) TABLET -NF PO SCH (21:45)
[2017-03-13] MEDS: ACAMPROSATE CALCIUM 333 MG TABLET.DR PO SCH ×3 (06:16→22:07)
[2017-03-13] MEDS ORDERED: PT OWN MED DRAWER 7, Y5N ONE (08:34)
[2017-03-13] MEDS: PRENATAL VITAMINS W/ FOLIC ACID TABLET (FP) PO SCH (10:41)
[2017-03-13] MEDS: SODIUM CHLORIDE NASAL SPRAY 44 ML BOTTLE NS SCH ×2 (10:41→22:09)
[2017-03-13] MEDS: NICOTINE 14 MG/24 HOURS TOPICAL PATCH TD SCH (10:41)
[2017-03-13] MEDS: HYDROCORTISONE 1% TOPICAL CREAM 30 GM TUBE TP SCH ×2 (10:41→22:09)
[2017-03-13] MEDS: TIOTROPIUM BROMIDE 18 MCG/INH (DEVICE W/ 5 CAPSULES) IH SCH (10:42)
[2017-03-13] MEDS: QUEtiapine FUMARATE 100 MG TABLET (FP) PO SCH (22:08)
[2017-03-13] MEDS: TAMSULOSIN HCL 0.4 MG CAP.ER.24H (FP) PO SCH (22:08)
[2017-03-13] MEDS: THIAMINE HCL 100 MG TABLET (FP) PO SCH (22:08)
[2017-03-13] MEDS: ATORVASTATIN CA 10 MG TABLET (FP) PO SCH (22:08)
[2017-03-13] MEDS: ELVITEG/COB/EMTRI/TENOFO (STRIBILD) TABLET -NF PO SCH (22:09)
[2017-03-14] MEDS: ACAMPROSATE CALCIUM 333 MG TABLET.DR PO SCH ×3 (06:33→22:01)
[2017-03-14] MEDS: HYDROCORTISONE 1% TOPICAL CREAM 30 GM TUBE TP SCH ×2 (10:08→22:02)
[2017-03-14] MEDS: TIOTROPIUM BROMIDE 18 MCG/INH (DEVICE W/ 5 CAPSULES) IH SCH (10:08)
[2017-03-14] MEDS: NICOTINE 14 MG/24 HOURS TOPICAL PATCH TD SCH (10:08)
[2017-03-14] MEDS: SODIUM CHLORIDE NASAL SPRAY 44 ML BOTTLE NS SCH ×2 (10:08→22:03)
[2017-03-14] MEDS: PRENATAL VITAMINS W/ FOLIC ACID TABLET (FP) PO SCH (10:08)
[2017-03-14] MEDS: MAG HYDROX/AL HYDROX/SIMETH 30 ML UNIT-DOSE CUP PO PRN (20:03)
[2017-03-14] MEDS: TAMSULOSIN HCL 0.4 MG CAP.ER.24H (FP) PO SCH (22:01)
[2017-03-14] MEDS: ATORVASTATIN CA 10 MG TABLET (FP) PO SCH (22:01)
[2017-03-14] MEDS: QUEtiapine FUMARATE 100 MG TABLET (FP) PO SCH (22:02)
[2017-03-14] MEDS: THIAMINE HCL 100 MG TABLET (FP) PO SCH (22:03)
[2017-03-14] MEDS: ELVITEG/COB/EMTRI/TENOFO (STRIBILD) TABLET -NF PO SCH (22:03)
[2017-03-15] MEDS: ACAMPROSATE CALCIUM 333 MG TABLET.DR PO SCH (06:13)
[2017-03-15] MEDS: SODIUM CHLORIDE NASAL SPRAY 44 ML BOTTLE NS SCH (09:34)
[2017-03-15] MEDS: HYDROCORTISONE 1% TOPICAL CREAM 30 GM TUBE TP SCH (09:34)
[2017-03-15] MEDS: TIOTROPIUM BROMIDE 18 MCG/INH (DEVICE W/ 5 CAPSULES) IH SCH (09:34)
[2017-03-15] MEDS: NICOTINE 14 MG/24 HOURS TOPICAL PATCH TD SCH (09:34)
[2017-03-15] MEDS: PRENATAL VITAMINS W/ FOLIC ACID TABLET (FP) PO SCH (09:34)
[2017-03-16] MEDS: ACAMPROSATE CALCIUM 333 MG TABLET.DR PO SCH ×5 (06:09→21:53)
[2017-03-16] MEDS: MAG HYDROX/AL HYDROX/SIMETH 30 ML UNIT-DOSE CUP PO PRN (09:05)
[2017-03-16] MEDS: NICOTINE 14 MG/24 HOURS TOPICAL PATCH TD SCH (10:14)
[2017-03-16] MEDS: PRENATAL VITAMINS W/ FOLIC ACID TABLET (FP) PO SCH (10:14)
[2017-03-16] MEDS: TIOTROPIUM BROMIDE 18 MCG/INH (DEVICE W/ 5 CAPSULES) IH SCH (10:14)
[2017-03-16] MEDS: SODIUM CHLORIDE NASAL SPRAY 44 ML BOTTLE NS SCH ×3 (10:14→21:55)
[2017-03-16] MEDS: HYDROCORTISONE 1% TOPICAL CREAM 30 GM TUBE TP SCH ×3 (10:14→21:54)
[2017-03-16] MEDS: TAMSULOSIN HCL 0.4 MG CAP.ER.24H (FP) PO SCH ×2 (16:57→21:53)
[2017-03-16] MEDS: ATORVASTATIN CA 10 MG TABLET (FP) PO SCH ×2 (16:57→21:53)
[2017-03-16] MEDS: QUEtiapine FUMARATE 100 MG TABLET (FP) PO SCH ×2 (16:58→21:53)
[2017-03-16] MEDS: ELVITEG/COB/EMTRI/TENOFO (STRIBILD) TABLET -NF PO SCH ×2 (16:58→22:29)
[2017-03-16] MEDS: THIAMINE HCL 100 MG TABLET (FP) PO SCH ×2 (16:59→21:53)
[2017-03-16] MEDS ORDERED: PT OWN MED DRAWER 7, Y5N ONE (21:55)
[2017-03-17] MEDS: ACAMPROSATE CALCIUM 333 MG TABLET.DR PO SCH (05:56)
[2017-03-17] MEDS ORDERED: PT OWN MED DRAWER 7, Y5N ONE ×2 (05:59→09:52)
[2017-03-17 07:02] VITALS: BP 102/62; PULSE 84; TEMP 98.5
[2017-03-17] MEDS: HYDROCORTISONE 1% TOPICAL CREAM 30 GM TUBE TP SCH (09:51)
[2017-03-17] MEDS: NICOTINE 14 MG/24 HOURS TOPICAL PATCH TD SCH (09:51)
[2017-03-17] MEDS: PRENATAL VITAMINS W/ FOLIC ACID TABLET (FP) PO SCH (09:51)
[2017-03-17] MEDS: TIOTROPIUM BROMIDE 18 MCG/INH (DEVICE W/ 5 CAPSULES) IH SCH (09:51)
[2017-03-17] MEDS: SODIUM CHLORIDE NASAL SPRAY 44 ML BOTTLE NS SCH (09:51)
--- NOTE | 2017-03-17 10:22 | PN ---
Psychiatric Progress Note Vital Signs: Vital Signs Period Temp Pulse Resp BP Sys/Garcia Pulse Ox Last 24 Hr 98.5 F 84 18-18 102/62 Date of Session: 03/17/17 Chief Complaint:: Discharge Note HPI: Patient addressing Alcohol and Cocaine Dependence comorbid with Nicotine Dependence and Substance-induced Sleep Disorder ROS: sthma, HIV, BPH were medically managed Current Medications: Active Medications Generic Name Dose Route Start Last Admin Trade Name Freq PRN Reason Stop Dose Admin Acamprosate 666 mg 03/11/17 14:00 03/17/17 05:56 Campral - PO 666 mg TID BENNETT Administration Acetaminophen 650 mg 02/23/17 16:22 Tylenol - PO Q4H PRN FEVER OR PAIN Al Hydroxide/Mg Hydroxide 30 ml 02/23/17 16:22 03/16/17 09:05 Mylanta Oral Suspension - PO 30 ml Q6H PRN Administration DYSPEPSIA Albuterol Sulfate 2 puff 03/02/17 17:37 Ventolin Hfa Inhaler - IH Q4H PRN ASTHMA Atorvastatin Calcium 10 mg 02/23/17 22:00 03/16/17 21:53 Lipitor - PO 10 mg HS BENNETT Administration Elvitegravir/Cobicis/Emtricit/Tenof 1 tab 02/27/17 22:00 03/16/17 22:29 Stribild (Non-Formulary) PO 1 tab DAILY@2200 BENNETT Administration Eucalyptus/Menthol/Phenol/Sorbitol 1 each 02/23/17 16:22 Cepastat Lozenge - MM Q4H PRN SORE THROAT Guaifenesin 10 ml 02/23/17 16:22 Robitussin Dm - PO Q6H PRN COUGH Hydrocortisone 1 applic 03/07/17 22:00 03/17/17 09:51 Hytone 1% Cream - TP Not Given BID BENNETT Hydroxyzine Pamoate 50 mg 02/23/17 16:22 03/10/17 21:37 Vistaril - PO 50 mg Q4H PRN Administration AGITATION Ibuprofen 400 mg 02/23/17 16:22 03/02/17 17:04 Motrin - PO 400 mg Q6H PRN Administration PAIN Loperamide HCl 4 mg 02/23/17 16:22 Imodium - PO Q6H PRN DIARRHEA Magnesium Citrate 300 ml 02/23/17 16:22 Citroma - PO Q48H PRN CONSTIPATION Magnesium Hydroxide 30 ml 02/23/17 16:22 Milk Of Magnesia - PO DAILY PRN CONSTIPATION Nicotine 14 mg 02/24/17 10:00 03/17/17 09:51 Nicoderm Patch - TD Not Given DAILY BENNETT Nicotine Polacrilex 2 mg 02/23/17 16:22 Nicorette Gum - BUC Q2H PRN NICOTINE REPLACEMENT RX Multivit/Folic Acid/Iron 1 tab 02/24/17 10:00 03/17/17 09:51 Vitamins (Sjr) - PO 1 tab DAILY BENNETT Administration Pseudoephedrine/Triprolidine 1 combo 02/23/17 16:22 Actifed - PO TID PRN NASAL CONGESTION Quetiapine Fumarate 100 mg 02/26/17 22:00 03/16/17 21:53 Seroquel - PO 100 mg HS BENNETT Administration Sodium Chloride 2 spray 03/03/17 11:30 03/17/17 09:51 [place] Nasal [place] - NS Not Given BID BENNETT Tamsulosin HCl 0.4 mg 02/23/17 22:00 03/16/17 21:53 Flomax - PO 0.4 mg HS BENNETT Administration Thiamine HCl 100 mg 02/23/17 22:00 03/16/17 21:53 Vitamin B1 - PO 100 mg HS BENNETT Administration Tiotropium [place] 1 puff 02/26/17 10:00 03/17/17 09:51 Spiriva - IH Not Given DAILY BENNETT Current Side Effect: No Lab tests ordered: Yes Lab tests reviewed: Yes Provider note:: Patient has completed this program today. He has met his treatment goals and will continue to address his issues in outpatient treatment at [facility]. Told underwriter that from his participation in this program, he has learned to stay focus, be aware of his surroundings and not to isolate. He responded well to Seroquel 100 mg po HS and Campral 666 mg po TID. Scripts for 30 days supply [facility] [address] [place] [id number]. He is stable for discharge today Total face to face time:: 35 Mental Status Exam - Mental Status Exam Alert and Oriented to: Time, Place, Person Cognitive Function: Fair Patient Appearance: Well Groomed Mood: Hopeful, Euthymic Affect: Appropriate Patient Behavior: Cooperative Speech Pattern: Clear Voice Loudness: Normal Thought Process: Intact, Goal Oriented Thought Disorder: Not Present Hallucinations: Denies Suicidal Ideation: Denies Homicidal Ideation: Denies Insight/Judgement: Fair Sleep: Fair Appetite: Good Muscle strength/Tone: Normal Gait/Station: Normal Psychiatric Treatment Plan - Problem List (1) Substance-induced sleep disorder Current Visit: Yes (2) Alcohol dependence Current Visit: Yes (3) Cocaine dependence Current Visit: No Qualifiers: Substance use status: uncomplicated Qualified Code(s): F14.20 - Cocaine dependence, uncomplicated (4) Nicotine dependence Current Visit: No Qualifiers: Nicotine product type: cigarettes Substance use status: uncomplicated Qualified Code(s): F17.210 - Nicotine dependence, cigarettes, uncomplicated (5) Asthma Current Visit: No Qualifiers: Asthma severity: mild Asthma persistence: unspecified Asthma complication type: with status asthmaticus Qualified Code(s): J45.902 - Unspecified asthma with status asthmaticus (6) BPH (benign prostatic hyperplasia) Current Visit: No Qualifiers: Lower urinary tract symptom presence: symptoms present Lower urinary tract symptom detail: post-void dribbling Qualified Code(s): N40.1 - Benign prostatic hyperplasia with lower urinary tract symptoms; N39.43 - Post-void dribbling; N39.43 - Post-void dribbling (7) HIV (human immunodeficiency virus infection) Current Visit: No Comment: patient brought in his own stribild (8) Hyperlipidemia Current Visit: No Qualifiers: Hyperlipidemia type: pure hypercholesterolemia Qualified Code(s): E78.00 - Pure hypercholesterolemia, unspecified; E78.0 - Pure hypercholesterolemia (9) Hypertension Current Visit: No Qualifiers: Hypertension type: essential hypertension Qualified Code(s): I10 - Essential (primary) hypertension Initial treatment plan: Patient is discharged today and refgerred to [facility] for outpatient treatment
== END 2017-03-17 10:20 | disposition home or self-care (01) | DRG 772 ==
LOC: YASAS 13:58 → Y3W 13:59
PROVIDERS: ADMIT Psychiatry & Neurology Psychiatry; ATTEND Psychiatry & Neurology Psychiatry
PROC: HZ42ZZZ Group Counseling for Substance Abuse Treatment, Cognitive-Behavioral (ICD-10-PCS; principal; 2017-02-23)
DX: F10.20 Alcohol dependence, uncomplicated (principal); F14.20 Cocaine dependence, uncomplicated; F17.210 Nicotine dependence, cigarettes, uncomplicated; F19.282 Other psychoactive substance dependence with psychoactive substance-induced sleep disorder; J45.902 Unspecified asthma with status asthmaticus; G47.00 Insomnia, unspecified; N40.1 Benign prostatic hyperplasia with lower urinary tract symptoms; N39.43 Post-void dribbling; Z21 Asymptomatic human immunodeficiency virus [HIV] infection status; E78.5 Hyperlipidemia, unspecified; I10 Essential (primary) hypertension; R04.0 Epistaxis; R09.81 Nasal congestion; J02.9 Acute pharyngitis, unspecified

== ENCOUNTER 2023-12-09 12:09 | Inpatient (IN) | payer OTHER ==
[2023-12-09 12:31] VITALS: BMI 21.8
[2023-12-09] MEDS ORDERED: DICYCLOMINE HCL 10 MG CAPSULE PO PRN (13:28)
[2023-12-09] MEDS ORDERED: BENZONATATE 200 MG CAPSULE PO PRN (13:28)
[2023-12-09] MEDS ORDERED: IBUPROFEN 400 MG TABLET (FP) PO PRN (13:28)
[2023-12-09] MEDS ORDERED: MAG HYDROX/AL HYDROX/SIMETH 30 ML UNIT-DOSE CUP PO PRN (13:28)
[2023-12-09] MEDS ORDERED: NALOXONE (NARCAN) HCL 4 MG/0.1 ML SPRAY NS PRN (13:28)
[2023-12-09] MEDS ORDERED: BISMUTH SUBSALICYLATE 262 MG/15 ML BTL PO PRN (13:28)
[2023-12-09] MEDS ORDERED: guaiFENesin 600 MG TABLET.ER (FP) PO PRN (13:28)
[2023-12-09] MEDS ORDERED: LORazepam 1 MG TABLET PO PRN (13:28)
[2023-12-09] MEDS ORDERED: NALOXONE (NYS OPIOID OVERDOSE PROGRAM) 4 MG/0.1 ML SPRAY NS PRN (13:28)
[2023-12-09] MEDS ORDERED: LOPERAMIDE HCL 2 MG CAPSULE PO PRN (13:28)
[2023-12-09] MEDS ORDERED: NICOTINE POLACRILEX 2 MG GUM BUC PRN (13:28)
[2023-12-09] MEDS ORDERED: ACETAMINOPHEN 325 MG TABLET (FP) PO PRN (13:28)
[2023-12-09] MEDS ORDERED: BENZOCAINE/MENTHOL (CHLORASEPTIC ) LOZENGE MM PRN (13:28)
[2023-12-09] MEDS ORDERED: ONDANSETRON *ODT* 4 MG TABLET SL PRN (13:28)
[2023-12-09] MEDS ORDERED: MAGNESIUM HYDROX 2400MG/30ML ORAL SUSPENSION 30 ML CUP PO PRN (13:28)
[2023-12-09] MEDS ORDERED: POLYETHYLENE GLYCOL (HEALTHYLAX) 3350 17 GM PACKET PO PRN (13:28)
[2023-12-09] MEDS: ALBUTEROL SO4 HFA INHALER IH SCH (15:56)
[2023-12-09] MEDS: ACAMPROSATE CALCIUM 333 MG TABLET.DR PO SCH (15:56)
[2023-12-09] MEDS: PRENATAL VITAMINS W/ FOLIC ACID TABLET (FP) PO SCH (15:56)
[2023-12-09] MEDS: LORazepam 2 MG TABLET PO SCH (17:07)
[2023-12-09] MEDS ORDERED: ALBUTEROL SO4 HFA INHALER IH PRN (17:22)
[2023-12-09] MEDS: TAMSULOSIN HCL 0.4 MG CAP PO SCH (22:11)
[2023-12-09] MEDS: MELATONIN 5 MG TABLETS PO SCH (22:11)
[2023-12-09] MEDS: THIAMINE 100 MG TABLET PO SCH (22:11)
[2023-12-09] MEDS: ATORVASTATIN CA 10 MG TABLET (FP) PO SCH (22:11)
[2023-12-10] MEDS: ELVITEG/COB/EMTRI/TENOF (GENVOYA) TABLET PO SCH (07:24)
[2023-12-10] MEDS ORDERED: ELVITEG/COB/EMTRI/TENOF (GENVOYA) TABLET PO SCH (08:00)
[2023-12-10] MEDS: PANTOPRAZOLE 40 MG TABLET PO SCH (09:59)
[2023-12-10] MEDS: TIOTROPIUM BROMIDE 2.5 MCG (SPIRIVA) RESPIMAT INHALER IH SCH (10:00)
[2023-12-10] MEDS: FLU VACCINE (FLULAVAL) PF 45 MCG/0.5 ML SYRINGE 2024-2025 IM ONE (12:07)
[2023-12-10 14:32] LABS: HEMATOCRIT 37.9 % (35.4-49); MCH 34.3 pg (25.7-33.7); MCHC 34.4 g/dl (32.0-35.9); MEAN CELL VOLUME 99.7 fl (80-96); MEAN PLT VOLUME 10.6 fl (7.5-11.1); PLATELET COUNT 70 10^3/uL (134-434); RDW 13.8 % (11.9-15.9); WHITE BLOOD COUNT 4.5 K/mm3 (4.0-10.0)
[2023-12-10 15:22] LABS: ALBUMIN 3.8 g/dl (3.4-5.0); CALCIUM 8.8 mg/dL (8.5-10.1)
[2023-12-10 15:25] LABS: CREATININE 1.2 mg/dL (0.55-1.3)
[2023-12-10 15:27] LABS: BILIRUBIN,TOTAL 1.5 mg/dL (0.2-1); TOT PROT 9.7 g/dl (6.4-8.2)
[2023-12-11] MEDS: LORazepam 1 MG TABLET PO SCH (05:48)
[2023-12-11] MEDS: hydrOXYzine PAMOATE 25 MG CAPSULE (FP) PO PRN (09:11)
[2023-12-11] MEDS: amLODIPine BESYLATE 5 MG TABLET (FP) PO SCH (10:07)
[2023-12-11] MEDS: IBUPROFEN 600 MG TABLET (FP) PO PRN (14:41)
[2023-12-11] MEDS: AMMONIUM LACTATE 12% LOTION 225 GM BOTTLE TP PRN (15:07)
[2023-12-12] MEDS: LORazepam 0.5 MG TABLET PO SCH (05:19)
[2023-12-12] MEDS: METHOCARBAMOL 500 MG TABLET PO PRN (10:26)
[2023-12-12] MEDS: LORazepam 0.5 MG TABLET PO PRN (14:33)
[2023-12-12] MEDS: GABAPENTIN 300 MG CAPSULE PO ONE (17:17)
[2023-12-13] MEDS: LORazepam 0.5 MG TABLET PO ONE (05:44)
[2023-12-14 09:27] VITALS: BP 125/66; PULSE 77; RESP 17; TEMP 97.5
== END 2023-12-14 12:32 | disposition other institution (70) | DRG 774 ==
LOC: YASAS 12:09 → Y3N 14:50
PROVIDERS: ADMIT Allergy & Immunology; ATTEND Surgery
PROC: HZ2ZZZZ Detoxification Services for Substance Abuse Treatment (ICD-10-PCS; principal; 2023-12-09)
DX: F10.230 Alcohol dependence with withdrawal, uncomplicated (principal); F14.20 Cocaine dependence, uncomplicated; F17.210 Nicotine dependence, cigarettes, uncomplicated; F19.282 Other psychoactive substance dependence with psychoactive substance-induced sleep disorder; F19.24 Other psychoactive substance dependence with psychoactive substance-induced mood disorder; F34.1 Dysthymic disorder; B20 Human immunodeficiency virus [HIV] disease; D69.6 Thrombocytopenia, unspecified; I10 Essential (primary) hypertension; J44.9 Chronic obstructive pulmonary disease, unspecified; J45.20 Mild intermittent asthma, uncomplicated; K21.9 Gastro-esophageal reflux disease without esophagitis; L30.8 Other specified dermatitis; M54.50 Low back pain, unspecified; G89.29 Other chronic pain; N40.1 Benign prostatic hyperplasia with lower urinary tract symptoms; N39.43 Post-void dribbling; Z99.89 Dependence on other enabling machines and devices; Z79.899 Other long term (current) drug therapy
CPT/HCPCS: 36415; 80053; 80305; 80307; 85027; 86593; 86780; 87811; 90656; 93005; 93010; G0008

== ENCOUNTER 2023-12-14 13:35 | Inpatient (IN) | payer OTHER ==
[2023-12-14] MEDS ORDERED: IBUPROFEN 600 MG TABLET (FP) PO PRN (15:59)
[2023-12-14] MEDS ORDERED: NICOTINE POLACRILEX 4 MG LOZENGE BC PRN (15:59)
[2023-12-14] MEDS ORDERED: POLYETHYLENE GLYCOL (HEALTHYLAX) 3350 17 GM PACKET PO PRN (15:59)
[2023-12-14] MEDS ORDERED: BENZONATATE 200 MG CAPSULE PO PRN (15:59)
[2023-12-14] MEDS ORDERED: IBUPROFEN 400 MG TABLET (FP) PO PRN (15:59)
[2023-12-14] MEDS ORDERED: METHOCARBAMOL 500 MG TABLET PO PRN (15:59)
[2023-12-14] MEDS ORDERED: NALOXONE HCL 0.4 MG/ML VIAL IVPUSH PRN (15:59)
[2023-12-14] MEDS ORDERED: MAGNESIUM HYDROX 2400MG/30ML ORAL SUSPENSION 30 ML CUP PO PRN (15:59)
[2023-12-14] MEDS ORDERED: NALOXONE (NARCAN) HCL 4 MG/0.1 ML SPRAY NS PRN (15:59)
[2023-12-14] MEDS ORDERED: guaiFENesin 600 MG TABLET.ER (FP) PO PRN (15:59)
[2023-12-14] MEDS ORDERED: LOPERAMIDE HCL 2 MG CAPSULE PO PRN (15:59)
[2023-12-14] MEDS ORDERED: ACETAMINOPHEN 325 MG TABLET (FP) PO PRN (15:59)
[2023-12-14] MEDS ORDERED: NICOTINE POLACRILEX 4 MG GUM BUC PRN (15:59)
[2023-12-14] MEDS ORDERED: ALBUTEROL SO4 HFA INHALER IH PRN (16:00)
[2023-12-14] MEDS: ATORVASTATIN CA 20 MG TABLET (FP) PO SCH (21:18)
[2023-12-14] MEDS: MELATONIN 5 MG TABLETS PO SCH (21:18)
[2023-12-14] MEDS: THIAMINE 100 MG TABLET PO SCH (21:18)
[2023-12-14] MEDS: TAMSULOSIN HCL 0.4 MG CAP PO SCH (21:19)
[2023-12-14] MEDS ORDERED: THIAMINE 100 MG TABLET PO SCH (22:00)
[2023-12-15] MEDS: ELVITEG/COB/EMTRI/TENOF (GENVOYA) TABLET PO SCH (07:15)
[2023-12-15] MEDS: amLODIPine BESYLATE 5 MG TABLET (FP) PO SCH (10:49)
[2023-12-15] MEDS: NICOTINE 21 MG/24 HOURS TOPICAL PATCH TD SCH (10:49)
[2023-12-15] MEDS: PRENATAL VITAMINS W/ FOLIC ACID TABLET (FP) PO SCH (10:49)
[2023-12-15] MEDS: PANTOPRAZOLE 40 MG TABLET PO SCH (10:49)
[2023-12-19] MEDS: MAG HYDROX/AL HYDROX/SIMETH 30 ML UNIT-DOSE CUP PO PRN (13:02)
[2023-12-22] MEDS: amLODIPine BESYLATE 5 MG TABLET (FP) PO SCH (12:40)
[2023-12-22] MEDS: SUVOREXANT 5 MG TABLET PO PRN (21:02)
[2023-12-23 15:24] LABS: BASO % 0.9 % (0-2.0); EOS % 4.3 % (0-4.5); HEMATOCRIT 35.6 % (35.4-49); HEMOGLOBIN 12.1 GM/dL (11.7-16.9); LYMPH % 38.7 % (8-40); MCH 34.4 pg (25.7-33.7); MCHC 34.1 g/dl (32.0-35.9); MEAN PLT VOLUME 9.9 fl (7.5-11.1); MONO % 9.1 % (3.8-10.2); PLATELET COUNT 171 10^3/uL (134-434); RBC 3.52 M/mm3 (4.00-5.60); RDW 13.7 % (11.9-15.9); WHITE BLOOD COUNT 5.3 K/mm3 (4.0-10.0)
[2023-12-23 15:26] LABS: POTASSIUM 4.1 mmol/L (3.5-5.1)
[2023-12-23 15:30] LABS: INR 1.18 (0.83-1.09); PROTHROMBIN TIME (PATIENT) 13.3 SEC (9.7-13.0)
[2023-12-23 15:32] LABS: ALBUMIN 3.3 g/dl (3.4-5.0); CALCIUM 8.8 mg/dL (8.5-10.1)
[2023-12-23 15:33] LABS: BLOOD UREA NITROGEN 8.6 mg/dL (7-18); MAGNESIUM 1.7 mg/dL (1.8-2.4)
[2023-12-23 15:35] LABS: CREATININE 0.8 mg/dL (0.55-1.3)
[2023-12-23 15:37] LABS: BILIRUBIN,TOTAL 0.3 mg/dL (0.2-1); TOT PROT 7.9 g/dl (6.4-8.2)
[2023-12-24] MEDS: LACTULOSE 20 GM/30 ML UDC (FOR ORAL USE ONLY) PO SCH (14:25)
[2023-12-24] MEDS: MAGNESIUM OXIDE 400 MG TABLET (FP) PO SCH (21:36)
[2023-12-25] MEDS: BENZOCAINE/MENTHOL (CHLORASEPTIC ) LOZENGE MM PRN (19:13)
[2023-12-25] MEDS: hydrOXYzine PAMOATE 25 MG CAPSULE (FP) PO PRN (21:29)
[2023-12-28] MEDS ORDERED: guaiFENesin 600 MG TABLET.ER (FP) PO PRN (10:25)
[2023-12-28] MEDS ORDERED: BENZONATATE 200 MG CAPSULE PO PRN (10:25)
[2023-12-28] MEDS: SULFAMETHOXAZOLE/TRIMETHOPRIM 800MG/160MG D.S. TABLET PO SCH (10:52)
[2023-12-29 06:21] VITALS: RESP 16; TEMP 97.5
[2023-12-29 09:09] VITALS: BP 124/74; PULSE 87
== END 2023-12-29 09:08 | disposition home or self-care (01) | DRG 772 ==
LOC: YASAS 13:35 → Y3E 13:49
PROVIDERS: ADMIT Psychiatry & Neurology Pain Medicine; ATTEND Psychiatry & Neurology Pain Medicine
PROC: HZ42ZZZ Group Counseling for Substance Abuse Treatment, Cognitive-Behavioral (ICD-10-PCS; principal; 2023-12-14)
DX: F10.20 Alcohol dependence, uncomplicated (principal); F14.20 Cocaine dependence, uncomplicated; F17.210 Nicotine dependence, cigarettes, uncomplicated; F19.282 Other psychoactive substance dependence with psychoactive substance-induced sleep disorder; F19.24 Other psychoactive substance dependence with psychoactive substance-induced mood disorder; Z21 Asymptomatic human immunodeficiency virus [HIV] infection status; E72.20 Disorder of urea cycle metabolism, unspecified; I10 Essential (primary) hypertension; J44.9 Chronic obstructive pulmonary disease, unspecified; J45.20 Mild intermittent asthma, uncomplicated; K21.9 Gastro-esophageal reflux disease without esophagitis; M54.50 Low back pain, unspecified; G89.29 Other chronic pain; N40.1 Benign prostatic hyperplasia with lower urinary tract symptoms; N39.43 Post-void dribbling
CPT/HCPCS: 0241U-QW; 36415; 80053; 82140; 82607; 82652; 82746; 83735; 85025; 85610; 86803